=== PATIENT | female | born 1955 | race Caucasian/White ===

== ENCOUNTER → 2016-08-15 | Outpatient (CLI) | payer BC ==
--- NOTE | 2016-08-15 15:06 | US ---
EXAMINATION TYPE: US pelvic complete DATE OF EXAM: 08/15/2016 1:17 PM COMPARISON: Prior pelvic ultrasound June CLINICAL HISTORY: US. History of left ovarian cyst TECHNIQUE: Transabdominal (TA) Date of LMP: 10 years ago EXAM MEASUREMENTS: Uterus: 8.9 x 3.4 x 4.6cm Endometrial Stripe: 0.4cm Right Ovary: 2.2 x 2.0 x 1.1cm Left Ovary: 7.8 x 5.4 x 4.5cm FINDINGS: 1. Uterus: Anteverted heterogeneous in appearance, hypoechoic area anterior fundus = 1.5 x 1.2 x 1 .4cm probable fibroid 2. Endometrium: appears wnl 3. Right Ovary: appears wnl 4. Left Ovary: septated cystic area = 7.0 x 4.5 x 5.3cm 5. Bilateral Adnexa: wnl 6. Posterior cul-de-sac: wnl The cystic left ovarian mass shows internal septation and possibly wall irregularity, low-level inter nal debris similar to prior exam. Grayscale, color Doppler imaging performed, color flow noted to the left ovary IMPRESSION: Persistent cystic left adnexal mass, fibroid uterus. Consider ELECTROCARDIOGRAPH REPAIRER consult Normal Values: Uterine Length: < 10cm Endometrium: Proliferative (Day 6 ? 14): 4 ? 6mm Secret[place] (Day 15 ? 28): 7 ? 14mm Post Menopausal (and not symptomatic): up to 8mm Post Menopausal (with vaginal bleeding): upper limits <5mm Post Menopausal with HRT: upper limits 8 - 15mm Post Menopausal with tamoxifen: < 6mm (although 50% of those receiving tamoxifen have been reported t o have thickness >8mm)
== END | disposition home or self-care (01) ==
LOC: RADUSWWP 12:59
PROVIDERS: ATTEND Obstetrics & Gynecology
DX: N83.209 Unspecified ovarian cyst, unspecified side (principal); D25.9 Leiomyoma of uterus, unspecified
CPT/HCPCS: 76856

== ENCOUNTER → 2016-11-13 | Outpatient (CLI) | payer BC ==
[2016-11-13 12:33] LABS: Basophils % (A) 1 %; CH 29.8; CHCM 32.7; Eosinophils # (A) 0.1 k/uL (0-0.7); Eosinophils % (A) 3 %; HCT 40.1 % (34.0-46.0); HDW 2.29; HGB 13.1 gm/dL (11.4-16.0); Luc % (Auto) 4; Lymphocytes % (A) 37 %; MCHC 32.8 g/dL (31.0-37.0); MCV 91.4 fL (80.0-100.0); Mean Platelet Volume 6.8; Monocytes # (A) 0.3 k/uL (0-1.0); Monocytes % (A) 6 %; Neutrophils # (A) 2.7 k/uL (1.3-7.7); Neutrophils % (A) 50 %; RBC 4.39 m/uL (3.80-5.40); RDW 13.1 % (11.5-15.5); WBC 5.4 k/uL (3.8-10.6); WBC (Perox) 5.85
[2016-11-13 12:35] LABS: Appearance,Urine Clear (Clear); Bilirubin,Urine Negative (Negative); Glucose,Urine (UA) Negative (Negative); Ketones,Urine Negative (Negative); Leukocyte Esterase,Urine Trace (Negative); Mucus,Urine Rare /hpf; Nitrite,Urine Negative (Negative); PH, Urine 5.5 (5.0-8.0); Particle Count 392; Protein,Urine Negative (Negative); RBC,Urine <1 /hpf (0-5); Specific Gravity,Urine 1.008 (1.001-1.035); Squamous Epithelial Cell,Urine 2 /hpf (0-4); UA Billing (MACRO vs. MICRO) MICRO; Urobilinogen,Urine <2.0 mg/dL (<2.0); WBC,Urine 1 /hpf (0-5)
[2016-11-13 12:42] LABS: Partial Thromboplastin Time 23.7 sec (22.0-30.0); Prothrombin Time 10.6 sec (9.0-12.0)
[2016-11-13 13:09] LABS: Anion Gap 13 mmol/L; Blood Urea Nitrogen 14 mg/dL (7-17); Calcium 9.7 mg/dL (8.4-10.2); Carbon Dioxide 27 mmol/L (22-30); Chloride 102 mmol/L (98-107); Glucose 82 mg/dL (74-99); Non-African American GFR(MDRD) >60 (>60 ml/min/1.73 sqM); Potassium 4.8 mmol/L (3.5-5.1); Sodium 142 mmol/L (137-145)
== END ==
LOC: LABPAT 11:48
PROVIDERS: ATTEND Internal Medicine
DX: Z01.818 Encounter for other preprocedural examination (principal)
CPT/HCPCS: 36415; 80048; 81001; 85025; 85610; 85730

== ENCOUNTER 2016-11-27 08:21 | Inpatient (IN) | payer BC ==
[2016-11-20 13:19] VITALS: BMI 31.5
--- NOTE | 2016-11-26 19:01 | HP ---
DATE OF ADMISSION: Precious Parekh is a 61-year-old patient seen with symptomatic left hip osteoarthritis. After having options regarding treatment discussed, she elected to proceed with direct anterior left total hip arthroplasty. Consent was obtained. Medical clearance was provided by Dr. Ernesto Bahena. Past medical history is hypertension, hyperlipidemia, gastroesophageal reflux disease. Past surgical history is bilateral shoulder arthroscopy. Daily medications: 1. Celexa. 2. Crestor. 3. Lisinopril. 4. Nortriptyline. 5. Omeprazole. ALLERGIES: None reported. SOCIAL HISTORY: The patient currently smokes cigarettes. Physical evaluation of left hip: There is a diffuse tenderness about the hip girdle, limited range of motion with severe pain. There is diffuse weakness about the hip girdle, positive hip impingement sign. Left lower extremity is approximately 1 inch shorter than the right, straight leg raise negative. Distal neurovascular exam intact. Radiographs of the left hip reveal severe osteoarthritis. IMPRESSION: Left hip osteoarthritis. PLAN: Direct anterior left total hip arthroplasty.
[~2016-11-27 08:21] MED LIST: ACETAMINOPHEN TAB 500 MG TAB PO ONE; LIDOCAINE 1% 20 ML VIAL (10MG/ML) FOR IV START INTRADERMA PRN; MELOXICAM 7.5 MG TAB PO ONE; ONDANSETRON 4 MG/2 ML VIAL IVP ONE; SCOPOLAMINE 1.5MG/72HR PATCH TRANSDERM ONE; TRANEXAMIC ACID 1,000 MG in SODIUM CHLORIDE 0.9% 100 ML IVPB ONE; ceFAZolin 2 GM in SODIUM CHLORIDE 0.9% 100 ML IVPB ONE
[2016-11-27] MEDS: LACTATED RINGERS 1,000 ML IV SCH ×2 (08:46→14:34)
[2016-11-27] MEDS ORDERED: ceFAZolin 3,000 MG in SODIUM CHLORIDE 0.9% IRRIGATIO 3,000 ML IRRIGATION ONE (10:42)
[2016-11-27] MEDS ORDERED: MIDAZOLAM 2 MG/2 ML VIAL ONE (10:42)
[2016-11-27] MEDS ORDERED: SODIUM CHLORIDE 0.9% 100 ML BAG ONE (10:42)
[2016-11-27] MEDS ORDERED: PROPOFOL 10 MG/ML 20 ML VIAL IV ONE (10:42)
[2016-11-27] MEDS ORDERED: fentaNYL (PF) 50 MCG/ML 2 ML AMP ONE (10:42)
[2016-11-27] MEDS ORDERED: TRANEXAMIC ACID 1,000 MG/10 ML VIAL ONE (10:42)
[2016-11-27] MEDS ORDERED: LIDOCAINE 1% INJ 10MG/ML (20 ML MDV) ONE (10:42)
[2016-11-27] MEDS ORDERED: PHENYLEPHRINE-0.9% NACL SYG 1 MG/10 ML SYRINGE ONE (10:42)
[2016-11-27] MEDS: ROPIVACAINE 246.25 MG, EPINEPHrine 0.5 MG, KETOROLAC 30 MG, cloNIDine HCL/PF 80 MCG, WA... MISCELLANE ONE ×10 (11:12→12:37)
[2016-11-27] MEDS ORDERED: LACTATED RINGERS 1,000 ML IV ONE ×2 (11:30→13:59)
[2016-11-27] MEDS ORDERED: NALOXONE 0.4 MG/ML 1 ML VIAL IV PRN (13:05)
[2016-11-27] MEDS ORDERED: HYDROmorphone 1 MG/ML 1 ML SYRINGE IVP PRN ×3 (13:05)
[2016-11-27] MEDS ORDERED: ONDANSETRON 4 MG/2 ML VIAL IVP PRN (13:05)
[2016-11-27] MEDS ORDERED: HYDROcodone/APAP 7.5-325MG 1 EACH TAB PO PRN (13:05)
--- NOTE | 2016-11-27 13:05 | P.OP ---
Date of Procedure: 11/27/16 Preoperative Diagnosis: Left hip osteoarthritis Postoperative Diagnosis: Left hip osteoarthritis Procedure(s) Performed: Direct anterior left total hip arthroplasty Implants: 1. Felipe Corail cementless femoral stem KLA size 11 high offset with collar 2. Felipe pinnacle acetabular shell 54 mm 3. Holliday pinnacle polyethylene acetabular liner neutral 36 mm ID 54 mm OD 4. Holliday metal femoral head 36 mm -2 Anesthesia: local, spinal Surgeon: Feliciano Bhakta Fire Crew Specialist #1: Renny Snow Estimated Blood Loss (ml): 300 Pathology: other (Femoral head) Condition: stable Disposition: PACU Indications for Procedure: 61-year-old patient seen with symptomatic left hip osteoarthritis. After having treatment options discussed, she elected to proceed with left total hip arthroplasty. Operative Findings: See description of procedure Description of Procedure: The patient was taken to the operative suite. Patient underwent a spinal anesthetic by the department of anesthesia. Patient was then transferred to the [place] table. Patient was given preoperative IV antibiotics and TXA. Both lower extremities were placed in standard leg spars. The hip was then prepped and draped in the normal sterile orthopedic fashion. A standard anterior incision was made beginning 3 cm lateral and 1 cm distal to the ASIS extending 10 cm. Dissection was then carried down through the subcutaneous soft tissues down to the fascia overlying the tensor fascia rodo. An incision was now made through the fascia. Careful dissection was taken down exposing the tensor fascia rodo muscle. A Cobra retractor was now placed along the medial femoral neck and a second one along the lateral femoral neck. The venous circumflex vessels were now identified, cauterized and clipped. We identified the anterior hip capsule. An incision was made through the hip capsule along the lateral border. Tag sutures were then placed along the anterior capsule and lateral capsule. We then performed a capsulotomy. Retractors were now placed around the femoral neck itself. A Cobra retractor was now placed along the anterior acetabulum. Good exposure was now noted of the femoral head/neck complex. Residual labrum was debrided out. We placed the extremity into 3 turns of fine traction. We were then able to introduce a skid in between the femoral head and acetabulum. A placed a awl into the femoral head. We took 2 turns of traction off the extremity. Rotation was now released. The femoral head was then dislocated without difficulty. Additional releasing was performed of the capsule. The head was then reduced. All traction was released. A femoral neck cut was now made with a sagittal saw. It was completed with an osteotome at the lateral neck area. The femoral head was now removed without difficulty. There was advanced osteoarthritis of both the femoral head and acetabulum. The extremity was now rotated to 60 of external rotation. It was locked in position. Residual labrum was now debrided out. Serial reaming was performed of the acetabulum. Once we reached the appropriate size and a trial was position and fit nicely. The appropriate size was now chosen opened and made available. The wound was irrigated with pulse lavage mechanical irrigation. It was introduced into the acetabulum without difficulty. The C-arm/fluoroscopy was now brought into the operative field. We made sure we had a true AP pelvic view. We now under direct C-arm/ fluoroscopy introduced into the acetabular component with appropriate version and inclination. It was well seated and stable. The C-arm was pulled back. An appropriate liner was introduced and clicked into position. It was felt to be stable. At this point retractors were removed. The extremity was now placed into 125 external rotation with no traction. The leg was now dropped to the ground and adducted. Appropriate retractors were now positioned along the proximal femur. We also placed our femoral look into position. Additional capsular releasing was performed to gain access to the proximal femur. We now used a box osteotome. A canal finder was now utilized. Serial broaching was now performed until we reached the appropriate size with good overall rotational stability. We did have to use a reamer as a canal was tight for a size 11. After appropriate reaming was performed to size 11 fit nicely with good rotational stability present. Appropriate calcar planing was performed. A trial head/neck was placed into position. The hip was now reduced. The C-arm /fluoroscopy was brought back into the operative field. A spot film was obtained of the nonoperative hip. A spot film was obtained of the trial components. Overlays were performed, we noted good overall alignment and positioning for determining leg length. The C-arm/fluoroscopy was pulled back. Retractors were repositioned and the hip was dislocated. The leg was again taken down to the ground and adducted. Appropriate retractors were repositioned as well as the femoral hook. All trial components were removed. The wound was irrigated with pulse lavage mechanical irrigation. The femoral implant was opened along with the femoral head. The deep soft tissues were infiltrated local analgesia. The femoral implant was introduced with good purchase and fixation noted. The femoral head was introduced with good positioning and fixation noted. Retractors were now removed. The hip was now reduced. There appeared be good positioning of the hip. This was confirmed under fluoroscopy and spot films were obtained to document this. A second gram of TXA was given. Bipolar cautery had been utilized intermittently through the procedure for hemostasis. The wound was irrigated copiously with pulse lavage mechanical irrigation. The fascia was repaired with Vicryl suture. The subcutaneous soft tissues were repaired in layers with Vicryl suture. The skin was approximated with pernio/Dermabond. Sterile dressings were applied. Patient was then awakened, transferred to a bed and taken to recovery in stable condition. Graeme SIMONS assisted with the procedure.
[2016-11-27] MEDS: HYDROmorphone 1 MG/ML 1 ML SYRINGE IVP PRN ×4 (13:39→14:07)
--- NOTE | 2016-11-27 14:04 | FL ---
Fluoroscopy INDICATION: Pain FINDINGS: Fluoroscopy time: 38 seconds. Images obtained: 1. IMPRESSIONS: 1. Documentation of fluoroscopy.
[2016-11-27] MEDS: ceFAZolin 2 GM in SODIUM CHLORIDE 0.9% 100 ML IVPB SCH (15:40)
[2016-11-27] MEDS: MULTIVITAMINS, THERA 1 EACH TAB PO SCH (15:45)
[2016-11-27] MEDS: traMADol 50 MG TAB PO SCH ×2 (17:49→21:54)
[2016-11-27] MEDS: SENNOSIDES-DOCUSATE SODIUM 1 EACH TAB PO SCH (21:55)
[2016-11-27] MEDS: HYDROcodone/APAP 7.5-325MG 1 EACH TAB PO PRN (22:40)
[2016-11-28] MEDS: LACTATED RINGERS 1,000 ML IV SCH ×4 (00:23→20:38)
[2016-11-28] MEDS: ceFAZolin 2 GM in SODIUM CHLORIDE 0.9% 100 ML IVPB SCH (00:23)
[2016-11-28] MEDS: HYDROcodone/APAP 7.5-325MG 1 EACH TAB PO PRN ×4 (03:51→22:05)
[2016-11-28] MEDS: hydrOXYzine PAMOATE 25 MG CAP PO PRN ×2 (03:51→21:20)
[2016-11-28 08:32] LABS: Basophils % (A) 1 %; CH 30.1; CHCM 32.4; Eosinophils # (A) 0.1 k/uL (0-0.7); Eosinophils % (A) 2 %; HCT 30.4 % (34.0-46.0); HDW 2.25; Luc # (Auto) 0.11; Luc % (Auto) 2; Lymphocytes # (A) 1.4 k/uL (1.0-4.8); Lymphocytes % (A) 23 %; MCH 30.2 pg (25.0-35.0); MCHC 32.3 g/dL (31.0-37.0); MCV 93.4 fL (80.0-100.0); Mean Platelet Volume 7.2; Monocytes # (A) 0.3 k/uL (0-1.0); Monocytes % (A) 4 %; Neutrophils # (A) 4.2 k/uL (1.3-7.7); Neutrophils % (A) 68 %; RBC 3.26 m/uL (3.80-5.40); RDW 13.6 % (11.5-15.5); WBC 6.2 k/uL (3.8-10.6); WBC (Perox) 6.48
[2016-11-28] MEDS: FAMOTIDINE 20 MG TAB PO SCH (08:34)
[2016-11-28] MEDS: MELOXICAM 7.5 MG TAB PO SCH (08:34)
[2016-11-28] MEDS: ENOXAPARIN 40 MG/0.4 ML SYRINGE SQ SCH (08:34)
[2016-11-28 08:35] LABS: HGB 9.8 gm/dL (11.4-16.0)
[2016-11-28] MEDS: traMADol 50 MG TAB PO SCH ×4 (08:36→21:19)
--- NOTE | 2016-11-28 10:46 | P.PN ---
Subjective Principal diagnosis: Status post left total hip arthroplasty Patient is seen today resting in her hospital bed, she appears comfortable. Her pain is well-controlled. She is ambulating well at this point, denies headaches, lightheadedness, chest pain or shortness of breath. Objective - Vital Signs Vital signs: Vital Signs Temp 98.5 F 11/28/16 07:34 Pulse 99 11/28/16 07:34 Resp 15 11/28/16 07:34 BP 109/57 11/28/16 07:34 Pulse Ox 88 L 11/28/16 07:34 Intake & Output 11/27/16 11/28/16 11/28/16 18:59 06:59 18:59 Intake Total 2103 2100 Output Total 060 028 8788 Balance 1553 1250 -1300 Intake: IV 2103 1100 Lactated Ringers 1,000 ml 1100 @ 100 mls/hr IV .Q10H PABLITO Rx#:[id number] Oral 1000 Output: Urine 491 023 2293 Uretheral (Michel) 850 700 Estimated Blood Loss 300 Other: Voiding Method Indwelling Catheter Indwelling Catheter Indwelling Catheter # Voids 1 - Exam Left lower extremity: Incisions clean, dry and intact. Minimal soft tissue swelling present in the anterior thigh. Calf is soft, no tenderness with palpation. Plantar flexion, dorsiflexion, EHL, FHL are intact. Sensory exam light touch throughout the extremities intact, cap refill less than 3 seconds. - Labs CBC & Chem 7: 11/28/16 07:38 Labs: Abnormal Lab Results - Last 24 Hours (Table) 11/28/16 Range/Units 07:38 RBC 3.26 L (3.80-5.40) m/uL Hgb 9.8 L D (11.4-16.0) gm/dL Hct 30.4 L (34.0-46.0) % Assessment and Plan Plan: Assessment: 1. Postoperative day #1 status post left total hip arthroplasty Plan: 1. Pain control, continue supportive oral medication 2. Daily dressing changes/icing the hip region 3. Encourage incentive spirometer 4. Continue therapy 5. GI and DVT prophylaxis, continue Lovenox 6. Medical recommendations 7. Discharge planning: Patient will likely be discharged home tomorrow Time with Patient: Less than 30
--- NOTE | 2016-11-28 13:17 | P.DS ---
Providers Date of admission: 11/27/16 08:21 Expected date of discharge: 11/30/16 Attending physician: Feliciano Bhakta Consults: 11/27/16 13:05 Consult Physician Routine Consulting Provider: Carlos Warren Consult Reason/Comments: Medical management Do you want consulting provider notified?: Yes Primary care physician: [facility] Course: Date of admission: 11/27/2016 Date of discharge: 11/30/2016 Admission diagnosis: Status post left total hip arthroplasty Discharge diagnosis: Same Attending physician: Dr. Bhakta Surgical procedures: Left total hip arthroplasty Brief history: Patient is a 61-year-old female with a history of progressive primary left hip osteoarthritis. At this point patient has failed conservative treatment measures and has opted to proceed with a elective left total hip arthroplasty. Hospital course: Details of patient's surgery can be found in operative report. Patient tolerated the procedure well and was subsequently transported to orthopedic floor. Patient's orthopeidc and medical care was provided daily. Patient had daily laboratory tests performed for evaluation of overall blood counts . Patient had daily physical therapy to include strengthening range of motion as well as education with walker ambulation. Patient was treated with Lovenox for their postoperative DVT prophylaxis during their inpatient stay. Patient was noted to have a relatively uneventful postoperative course. Patient reported satisfactory pain control with oral pain medications by postoperative day 0. Patient showed satisfactory progress with physical therapy. Patient moved steadily through the program and had no difficulty meeting the goals by postoperative day 2 . Given patient's otherwise satisfactory course and having met physical therapy goals, plan is to discharge patient rehab on postoperative day 2 . Discharge condition/disposition: Patient will be discharged to rehab in stable condition. Discharge medications: Instructions are given on resumption of patient's normal daily medications per primary care recommendation, in addition patient will be prescribed [place] 7.5 mg/325 mg, tramadol 50 mg, aspirin 325 mg, Colace 100 mg, Pepcid 20 mg. Discharge instructions: 1. Wound care and infection precautions, keep incision dry and covered while showering, no lotions, creams, moisturizers. No soaking, tubs, pools, hottubs. Do not scrub over the incision. 2. Weight-bear as tolerated with walker / cane until follow-up. 3. Ice and elevate when necessary. Do not exceed 20 minutes per hour with ice pack. 4. Utilize compression sleeve until seen at first follow up appointment. 5. Visiting nursing care. 6. Home physical therapy. 7. Pain meds and anticoagulants per prescription. 8. Pain medication has potential to cause constipation. Increase oral fluid and fiber intake. Contact primary care provider if you have not had a bowel movement within 48 hours after discharge 9. No anti-inflammatory medication until discussed at first post operative visit, this including Motrin, Aleve, Mobic, Diclofenac, Aspirin. 10. Follow up in office at 2 weeks postop with Graeme Snow PA-C 11. Follow up with your primary care doctor 7-10 days after discharge. 12. Contact [facility] with any questions, . Procedures: Left total hip arthroplasty Patient Condition at Discharge: Good Plan - Discharge Summary New Discharge Prescriptions: Aspirin 325 mg PO BID #60 tab Docusate [Colace] 100 mg PO DAILY #30 capsule Famotidine [Pepcid] 20 mg PO DAILY #30 tablet HYDROcodone/APAP 7.5-325MG [[place] 7.5] 1 - 2 each PO Q6HR PRN #60 tab PRN Reason: Pain traMADol HCl [Ultram] 50 mg PO Q6H PRN #40 tab PRN Reason: Pain Discharge Medication List Cholecalciferol [Vitamin D3] 2,000 units PO DAILY 11/20/16 [History] Citalopram Hydrobromide [CeleXA] 20 mg PO DAILY 11/20/16 [History] Lisinopril [Zestril] 20 mg PO HS 11/20/16 [History] Nortriptyline [Pamelor] 30 mg PO HS 11/20/16 [History] Pantoprazole [Protonix] 40 mg PO DAILY 11/20/16 [History] Rosuvastatin Calcium [Crestor] 40 mg PO DAILY 11/20/16 [History] Aspirin 325 mg PO BID #60 tab 11/29/16 [Rx] Docusate [Colace] 100 mg PO DAILY #30 capsule 11/29/16 [Rx] HYDROcodone/APAP 7.5-325MG [[place] 7.5] 1 - 2 each PO Q6HR PRN #60 tab 11/29/16 [ Rx] traMADol HCl [Ultram] 50 mg PO Q6H PRN #40 tab 04/19/17 [Rx] Follow up Appointment(s)/Referral(s): Renny Snow, BHASKAR [PHYSICIAN DOUGH SC[employer]ER AND MIXER] - 12/15/16 1:50 pm Activity/Diet/Wound Care/Special Instructions: [facility] - Orthopedic Discharge Instructions: 1. Wound care and infection precautions, keep incision dry and covered while showering, no lotions, creams, moisturizers. No soaking, pools, hot tubs. Do not scrub over incision. 2. Weight-bear as tolerated with walker / cane until follow-up. 3. Ice and elevate when necessary. Do not exceed 20 minutes per hour with ice pack. 4. Utilize compression sleeve until seen at first follow up appointment. 5. Visiting nursing care. 6. Home physical therapy. 7. Pain meds and anticoagulants per prescription. 8. Pain medication has potential to cause constipation. Increase oral fluid and fiber intake. Contact primary care provider if you have not had a bowel movement within 48 hours after discharge. 9. No anti-inflammatory medication until discussed at first post operative visit, this including Motrin, Aleve, Mobic, Diclofenac. 10. Follow up in office at 2 weeks postop with Graeme Snow PA-C 11. Follow up with your primary care doctor 7-10 days after discharge. 12. Contact [facility] with any questions, . Discharge Disposition: TRANSFER TO SNF/ECF
--- NOTE | 2016-11-28 16:19 | XR ---
EXAMINATION TYPE: XR chest 1V DATE OF EXAM: 11/28/2016 3:57 PM HISTORY: Shortness of breath. COMPARISON: None. TECHNIQUE: Single view of the chest is submitted. FINDINGS: Demonstrated are scattered senescent parenchymal change. There is no evidence for focal infiltrate. The heart is stable. Hilar and mediastinal structures are within normal limits. Degenerative changes are seen of the dorsal spine. IMPRESSION: 1. Chronic changes without evidence for acute pulmonary disease.
[2016-11-28] MEDS: ZOLPIDEM 5 MG TAB PO SCH (21:19)
[2016-11-28] MEDS: SENNOSIDES-DOCUSATE SODIUM 1 EACH TAB PO SCH (22:06)
[2016-11-29] MEDS: hydrOXYzine PAMOATE 25 MG CAP PO PRN (02:47)
[2016-11-29] MEDS: LACTATED RINGERS 1,000 ML IV SCH ×2 (04:12→19:54)
[2016-11-29] MEDS: HYDROcodone/APAP 7.5-325MG 1 EACH TAB PO PRN ×4 (04:13→21:09)
--- NOTE | 2016-11-29 08:51 | CONS ---
DATE OF CONSULTATION: 11/28/2016 REASON FOR CONSULTATION: Medical management requested by Dr. Bhakta. CONSULTATION: This is a very pleasant 61-year-old patient I saw earlier on 11/28/16. Patient has undergone a left total hip arthroplasty. Significant pain is present operative site. No nausea or vomiting. No chest pain. Did tolerate some breakfast. Patient's chronic stable medical conditions include GERD, hyperlipidemia, hypertension, osteoarthritis, sleep apnea, fatty liver. REVIEW OF SYSTEMS: CONSTITUTIONAL: None. HEENT: None. RESPIRATORY: None. CARDIOVASCULAR: None. GASTROINTESTINAL: None. GENITOURINARY: None. MUSCULOSKELETAL: Pain in the joints. DERMATOLOGICAL: None. HEMATOLOGIC: None. LYMPHATICS: None. PSYCHIATRY: None. NEUROLOGICAL: None. Past history of GERD, hyperlipidemia, hypertension, osteoarthritis, sleep apnea, fatty liver. PAST SURGICAL HISTORY: Bilateral shoulder surgery, bilateral ovaries and tubes removed. Past psych history of anxiety. SOCIAL HISTORY: Patient smoked a pack and a half a day for 40 years; stopped in August of this year. . FAMILY HISTORY: Cancer type unknown. HOME MEDICATIONS: 1. Crestor 40 mg a day. 2. Protonix 40 mg a day. 3. Pamelor 30 mg p.o. q.h.s. 4. Zestril 20 mg p.o. q.h.s. 5. Celexa 20 mg p.o. daily. 6. Vitamin D3, 2000 units p.o. daily. ALLERGIES: None. On examination, temperature 98.5, pulse 99, respirations 15, blood pressure 109/57, pulse ox 98% on 2 L. GENERAL APPEARANCE: Sitting up, well built, BMI of 31.5, comfortable. EYES: Pupils equal. Conjunctivae normal. HENT: Oral cavity normal. NECK: JVD not raised. Mass not palpable. RESPIRATORY: Effort normal. LUNGS: Slightly decreased breath sounds. CARDIOVASCULAR: First and second sounds normal. No edema. ABDOMEN: Soft, nontender. Liver and spleen not palpable. LYMPHATIC: No lymph node palpable in the neck or axillae. PSYCHIATRY: Alert and oriented x3. Mood and affect normal. NEUROLOGICAL: Pupils equal. Cranial nerves grossly intact. Dressing over the left hip. INVESTIGATIONS: White count 6.2, hemoglobin 9.8. Hemoglobin was 13.1 on 11/13/16. ASSESSMENT: 1. Left total hip arthroplasty. 2. Acute blood loss anemia expected from surgery. 3. Gastroesophageal reflux disease. 4. Hyperlipidemia. 5. Essential hypertension. 6. Primary osteoarthritis. 7. Obstructive sleep apnea. Patient is awaiting to get a CPAP machine. 8. Fatty liver. 9. Obesity, body mass index 31.5. PLAN: Patient's home medications will be resumed. Care was discussed with the patient. Pain control in place as per Orthopedics. The patient is on DVT prophylaxis in the form of Lovenox. Thank you Dr. Bhakta.
[2016-11-29] MEDS: MELOXICAM 7.5 MG TAB PO SCH (09:05)
[2016-11-29] MEDS: traMADol 50 MG TAB PO SCH ×4 (09:05→23:32)
[2016-11-29] MEDS: ENOXAPARIN 40 MG/0.4 ML SYRINGE SQ SCH (09:05)
[2016-11-29] MEDS: FAMOTIDINE 20 MG TAB PO SCH (09:05)
[2016-11-29] MEDS: MULTIVITAMINS, THERA 1 EACH TAB PO SCH (09:06)
--- NOTE | 2016-11-29 12:29 | PN ---
DATE OF SERVICE: 11/29/2016 PRESENTING COMPLAINT: Left total hip arthroplasty. INTERVAL HISTORY: Patient is status post left total hip arthroplasty. Some pain at the operative site. No chest pain, shortness of breath, nausea or vomiting. Did work with physical therapy. Did tolerate her breakfast. Review of systems done for constitutional, cardiovascular, GI, pulmonary; relevant findings as above. Current medications are reviewed. On examination, temperature 98, pulse 86, respiration 17, blood pressure 104/76, pulse ox 96% on room air. GENERAL APPEARANCE: Sitting up, comfortable. EYES: Pupils equal. Conjunctivae normal. NECK: JVD not raised. Mass not palpable. Respiratory effort normal. LUNGS: Slightly decreased breath sounds. CARDIOVASCULAR: First and second sounds normal. No edema. ABDOMEN: Soft, nontender. Liver and spleen not palpable. PSYCHIATRY: Alert and oriented x3. Mood and affect is normal. EXTREMITIES: No edema. INVESTIGATIONS: No blood work from today. ASSESSMENT: 1. Left total hip arthroplasty. 2. Acute blood loss anemia as expected from surgery. 3. Gastroesophageal reflux disease. 4. Hyperlipidemia. 5. Essential hypertension. 6. Primary osteoarthritis. 7. Obstructive sleep apnea. Patient is waiting to get a CPAP machine. 8. Fatty liver. 9. Obesity; body mass index of 31.5. PLAN: Care was discussed with the patient, stable. After discharge, she should follow up with the family doctor. Thank you, Dr. Bhakta.
--- NOTE | 2016-11-29 12:38 | P.PN ---
Subjective Principal diagnosis: Status post left total hip arthroplasty Patient is seen today resting in her hospital bed, she appears comfortable. Her pain is well-controlled. She is ambulating well at this point, denies headaches, lightheadedness, chest pain or shortness of breath. Objective - Vital Signs Vital signs: Vital Signs Temp 98.0 F 11/29/16 07:45 Pulse 86 11/29/16 07:45 Resp 17 11/29/16 07:45 BP 114/76 11/29/16 07:45 Pulse Ox 96 11/29/16 07:45 Intake & Output 11/28/16 11/29/16 11/29/16 18:59 06:59 18:59 Intake Total 1130 480 Output Total 1300 Balance -1300 1130 480 Intake: Oral 1130 480 Output: Urine 1300 Uretheral (Michel) 700 Other: Voiding Method Indwelling Catheter Toilet Toilet # Voids 2 2 1 - Exam Left lower extremity: Incisions clean, dry and intact. Minimal soft tissue swelling present in the anterior thigh. Calf is soft, no tenderness with palpation. Plantar flexion, dorsiflexion, EHL, FHL are intact. Sensory exam light touch throughout the extremities intact, cap refill less than 3 seconds. - Labs CBC & Chem 7: 11/28/16 07:38 Assessment and Plan Plan: Assessment: 1. Postoperative day #2 status post left total hip arthroplasty Plan: 1. Pain control, continue supportive oral medication 2. Daily dressing changes/icing the hip region 3. Encourage incentive spirometer 4. Continue therapy 5. GI and DVT prophylaxis, continue Lovenox 6. Medical recommendations 7. Discharge planning: Patient may be discharged to rehab today Time with Patient: Less than 30
[2016-11-29] MEDS: SENNOSIDES-DOCUSATE SODIUM 1 EACH TAB PO SCH (21:09)
[2016-11-29] MEDS: ZOLPIDEM 5 MG TAB PO SCH (21:10)
[2016-11-30] MEDS: LACTATED RINGERS 1,000 ML IV SCH (01:25)
[2016-11-30] MEDS: HYDROcodone/APAP 7.5-325MG 1 EACH TAB PO PRN (05:20)
[2016-11-30 07:34] LABS: Basophils % (A) 0 %; CH 30.3; CHCM 32.9; Eosinophils # (A) 0.3 k/uL (0-0.7); Eosinophils % (A) 4 %; HCT 26.9 % (34.0-46.0); HDW 2.42; HGB 8.7 gm/dL (11.4-16.0); Luc # (Auto) 0.18; Luc % (Auto) 3; Lymphocytes # (A) 1.7 k/uL (1.0-4.8); Lymphocytes % (A) 24 %; MCH 30.1 pg (25.0-35.0); MCHC 32.6 g/dL (31.0-37.0); MCV 92.4 fL (80.0-100.0); Mean Platelet Volume 7.5; Monocytes # (A) 0.4 k/uL (0-1.0); Monocytes % (A) 5 %; Neutrophils # (A) 4.4 k/uL (1.3-7.7); Neutrophils % (A) 64 %; RBC 2.91 m/uL (3.80-5.40); RDW 13.8 % (11.5-15.5); WBC 6.9 k/uL (3.8-10.6); WBC (Perox) 6.86
[2016-11-30 08:11] VITALS: BP 119/72; PULSE 88; RESP 17; TEMP 98.1
[2016-11-30] MEDS: traMADol 50 MG TAB PO SCH ×2 (08:43→14:36)
[2016-11-30] MEDS: ENOXAPARIN 40 MG/0.4 ML SYRINGE SQ SCH (08:44)
[2016-11-30] MEDS: FAMOTIDINE 20 MG TAB PO SCH (08:45)
[2016-11-30] MEDS: MELOXICAM 7.5 MG TAB PO SCH (08:45)
--- NOTE | 2016-11-30 09:00 | P.PN ---
Subjective Principal diagnosis: Status post left total hip arthroplasty Patient is seen today resting in her hospital bed, she appears comfortable. Her pain is well-controlled. She is ambulating well at this point, denies headaches, lightheadedness, chest pain or shortness of breath. Objective - Vital Signs Vital signs: Vital Signs Temp 98.1 F 11/30/16 08:10 Pulse 88 11/30/16 08:10 Resp 17 11/30/16 08:10 BP 119/72 11/30/16 08:10 Pulse Ox 96 11/30/16 08:10 Intake & Output 11/29/16 11/30/16 11/30/16 18:59 06:59 18:59 Intake Total 960 1130 Output Total 600 Balance 960 530 Weight 80.739 kg Intake: Oral 960 1130 Output: Urine 600 Other: Voiding Method Toilet Toilet # Voids 1 2 - Exam Left lower extremity: Incisions clean, dry and intact. Minimal soft tissue swelling present in the anterior thigh. Calf is soft, no tenderness with palpation. Plantar flexion, dorsiflexion, EHL, FHL are intact. Sensory exam light touch throughout the extremities intact, cap refill less than 3 seconds. - Labs CBC & Chem 7: 11/30/16 06:29 Labs: Abnormal Lab Results - Last 24 Hours (Table) 11/30/16 Range/Units 06:29 RBC 2.91 L (3.80-5.40) m/uL Hgb 8.7 L (11.4-16.0) gm/dL Hct 26.9 L (34.0-46.0) % Assessment and Plan Plan: Assessment: 1. Postoperative day #3 status post left total hip arthroplasty Plan: 1. Pain control, will dc on oral medications 2. Daily dressing changes/icing the hip region 3. Encourage incentive spirometer 4. Continue therapy 5. GI and DVT prophylaxis, will be dc on aspirin 325mg bid 6. Medical recommendations 7. Discharge planning: Patient may be discharged to rehab today Time with Patient: Less than 30
[2016-11-30] MEDS ORDERED: CITALOPRAM HYDROBROMIDE 20 MG TAB PO SCH (09:30)
[2016-11-30] MEDS ORDERED: ATORVASTATIN 80 MG TAB PO SCH (09:30)
[2016-11-30] MEDS ORDERED: CHOLECALCIFEROL 1,000 UNIT TAB PO SCH (09:30)
[2016-11-30] MEDS ORDERED: PANTOPRAZOLE 40 MG TABLET PO SCH (09:30)
[2016-11-30] MEDS ORDERED: LISINOPRIL 20 MG TAB PO SCH (21:00)
[2016-11-30] MEDS ORDERED: NORTRIPTYLINE 10 MG CAP PO SCH (21:00)
== END 2016-11-30 14:45 | DRG 470 ==
LOC: 2ORMAIN 08:21 → 3SUR 12:55
PROVIDERS: ADMIT Internal Medicine; ATTEND Orthopaedic Surgery
PROC: 0SRB02A Replacement of Left Hip Joint with Metal on Polyethylene Synthetic Substitute, Uncemented, Open Approach (ICD-10-PCS; principal; 2016-11-27 10:10)
DX: M16.12 Unilateral primary osteoarthritis, left hip (principal); K76.0 Fatty (change of) liver, not elsewhere classified; E66.9 Obesity, unspecified; D62 Acute posthemorrhagic anemia; I10 Essential (primary) hypertension; E78.5 Hyperlipidemia, unspecified; F17.210 Nicotine dependence, cigarettes, uncomplicated; G47.33 Obstructive sleep apnea (adult) (pediatric); K21.9 Gastro-esophageal reflux disease without esophagitis; Z68.31 Body mass index [BMI] 31.0-31.9, adult; Z79.899 Other long term (current) drug therapy
CPT/HCPCS: 71010; 73501; 85025; 86850; 86900; 86901; 88300; 94760

== ENCOUNTER 2016-12-02 19:39 | Emergency (ER) | payer BC ==
--- NOTE | 2016-12-02 20:17 | ED ---
General Adult HPI - General Source: patient, family, RN notes reviewed Mode of arrival: wheelchair Limitations: no limitations <Zhao العلي - Last Filed: 12/02/16 20:16> <Bart Beck - Last Filed: 12/02/16 22:05> - General Chief complaint: Extremity Problem,Nontraumatic Stated complaint: post op concerns Time Seen by Provider: 12/02/16 20:09 - History of Present Illness Initial comments: Patient is a pleasant [age]-year-old female presenting to the emergency Department with left leg swelling. Patient did have left hip replacement done 5 days ago. Patient has had progressive swelling in the left leg since that time. Patient states there is some discomfort. Patient denies specific calf tenderness. No chest pain or dyspnea. No history of similar symptoms previously. Patient does take aspirin. (Zhao العلي) - Related Data Home Medications Medication Instructions Recorded Confirmed Cholecalciferol [Vitamin D3] 2,000 units PO DAILY 11/20/16 12/02/16 Citalopram Hydrobromide [CeleXA] 20 mg PO DAILY 11/20/16 12/02/16 Lisinopril [Zestril] 20 mg PO HS 11/20/16 12/02/16 Nortriptyline [Pamelor] 30 mg PO HS 11/20/16 12/02/16 HYDROcodone/APAP 7.5-325MG [[place] 1 tab PO Q6HR PRN 12/02/16 12/02/16 7.5-325] Magnesium Oxide [Mag-Ox] 400 mg PO HS 12/02/16 12/02/16 traMADol HCl [Ultram] 50 mg PO Q6H PRN 12/02/16 12/02/16 Previous Rx's Medication Instructions Recorded Aspirin 325 mg PO BID #60 tab 11/29/16 Docusate [Colace] 100 mg PO DAILY #30 capsule 11/29/16 Allergies Allergy/AdvReac Type Severity Reaction Status Date / Time No Known Allergies Allergy Verified 12/02/16 20:08 Review of Systems ROS Other: All systems not noted in ROS Statement are negative. Constitutional: Denies: fever Eyes: Denies: eye pain ENT: Denies: ear pain Respiratory: Denies: cough, dyspnea Cardiovascular: Denies: chest pain Endocrine: Denies: fatigue Gastrointestinal: Denies: abdominal pain Genitourinary: Denies: dysuria Musculoskeletal: Denies: back pain Skin: Denies: rash Neurological: Denies: weakness <Zhao العلي - Last Filed: 12/02/16 20:16> ROS Other: All systems not noted in ROS Statement are negative. <Bart Beck - Last Filed: 12/02/16 22:05> ROS Statement: Those systems with pertinent positive or pertinent negative responses have been documented in the HPI. Past Medical History Past Medical History: GERD/Reflux, Hyperlipidemia, Hypertension, Liver Disease, Osteoarthritis (OA), Sleep Apnea/CPAP/BIPAP Additional Past Medical History / Comment(s): BS INCREASING, NO DIAGNOSIS OR TX YET. FATTY LIVER. LT HIP OA. POS SLEEP APNEA, NO TX YET. MIGRAINES. VARICOSE VEINS. History of Any Multi-Drug Resistant Organisms: None Reported Past Surgical History: Orthopedic Surgery Additional Past Surgical History / Comment(s): MONIQUE SHOULDER SURG. MONIQUE OVARIES, TUBES REMOVED. Past Anesthesia/Blood Transfusion Reactions: No Reported Reaction Past Psychological History: Anxiety Smoking Status: Current some day smoker Past Alcohol Use History: None Reported Additional Past Alcohol Use History / Comment(s): SMOKED 40 YEARS, 1/2-1 PPD, QUIT 08/2016. Past Drug Use History: None Reported - Past Family History Father Brother(s) Family Medical History: Cancer Mother Family Medical History: Cancer <Zhao العلي - Last Filed: 12/02/16 20:16> General Exam Limitations: no limitations General appearance: alert, in no apparent distress Head exam: Present: atraumatic Eye exam: Present: normal appearance, PERRL ENT exam: Present: normal oropharynx Neck exam: Present: normal inspection Respiratory exam: Present: normal lung sounds bilaterally Cardiovascular Exam: Present: regular rate, normal rhythm Expanded Peripheral pulses: 2+: Dorsalis Pedis (R), Dorsalis Pedis (L) GI/Abdominal exam: Present: soft. Absent: tenderness Extremities exam: Present: pedal edema (+2 on the left, trace in the right). Absent: calf tenderness Neurological exam: Present: alert Psychiatric exam: Present: normal affect, normal mood Skin exam: Present: normal color. Absent: rash <Zhao العلي - Last Filed: 12/02/16 20:16> Medical Decision Making <Zhao العلي - Last Filed: 12/02/16 20:16> <Bart Beck - Last Filed: 12/02/16 22:05> - Medical Decision Making Ultrasound showed no DVT. (Bart Beck) Disposition <Zhao العلي - Last Filed: 12/02/16 20:16> Time of Disposition: 22:05 <Bart Beck - Last Filed: 12/02/16 22:05> Clinical Impression: Postoperative edema Disposition: HOME SELF-CARE Condition: Good Instructions: Leg Edema (ED) Referrals: Ernesto Bahena MD [Primary Care Provider] - 1-2 days
--- NOTE | 2016-12-02 21:33 | US ---
EXAMINATION TYPE: US venous doppler duplex LE LT DATE OF EXAM: 12/02/2016 8:16 PM COMPARISON: NONE CLINICAL HISTORY: Pain, swelling, post op hip replacement 5 days. SIDE PERFORMED: Left TECHNIQUE: The lower extremity deep venous system is examined utilizing real time linear array sonog jorge luis with graded compression, doppler sonography and color-flow sonography. VESSELS IMAGED: External Iliac Vein (EIV) Common Femoral Vein Deep Femoral Vein Greater Saphenous Vein * Femoral Vein Popliteal Vein Small Saphenous Vein * Proximal Calf Veins (* superficial vessels) Left Leg: Appears negative for DVT. IMPRESSION: 1. Left lower extremity negative for deep venous thrombosis by ultrasound.
[2016-12-02] MEDS ORDERED: HYDROcodone/APAP 7.5-325MG 1 EACH TAB PO ONE (22:04)
[2016-12-02 22:15] VITALS: BP 155/67; PULSE 84; RESP 18; TEMP 97.6
== END 2016-12-02 22:36 | disposition home or self-care (01) ==
LOC: EC 19:39
DX: R60.0 Localized edema (principal); I10 Essential (primary) hypertension; M19.90 Unspecified osteoarthritis, unspecified site; F41.9 Anxiety disorder, unspecified; F17.200 Nicotine dependence, unspecified, uncomplicated; Z79.899 Other long term (current) drug therapy; Z96.642 Presence of left artificial hip joint
CPT/HCPCS: 99283

== ENCOUNTER → 2018-02-08 | Outpatient (CLI) | payer BC ==
--- NOTE | 2018-02-08 12:27 | ECHOF ---
Referral Reason:M34.9 Systemic sclerosis, unspecified MEASUREMENTS -------- HEIGHT: 162.6 cm WEIGHT: 78.0 kg BP: IVSd: 1.2 cm (0.6 - 1.1) LVIDd: 3.9 cm (3.9 - 5.3) LVPWd: 1.3 cm (0.6 - 1.1) IVSs: 1.6 cm LVIDs: 2.5 cm LVPWs: 1.9 cm LAESV Index (A-L): 16.43 ml/m Ao Diam: 3.0 cm (2.0 - 3.7) AV Cusp: 1.7 cm (1.5 - 2.6) LA Diam: 3.4 cm (2.7 - 3.8) MV EXCURSION: 19.436 mm (> 18.000) MV EF SLOPE: 74 mm/s (70 - 150) EPSS: 0.6 cm MV E Clinton: 0.63 m/s MV DecT: 280 ms MV A Clinton: 0.84 m/s MV E/A Ratio: 0.76 RAP: 5.00 mmHg RVSP: 11.51 mmHg FINDINGS -------- Sinus rhythm. This was a technically good study. The left ventricular size is normal. There is mild concentric left ventricular hypertrophy. Overa ll left ventricular systolic function is normal with, an EF between 55 - 60 %. The right ventricle is normal in size and function. The left atrium is normal in size. The right atrium is normal in size. The aortic valve is trileaflet, and appears structurally normal. No aortic stenosis or regurgitation. There is trace mitral regurgitation. Trace tricuspid regurgitation present. The right ventricular systolic pressure, as measured by Dopp ler, is 11.51mmHg. Pulmonic valve appears structurally normal. The pericardium is normal. CONCLUSIONS -------- 1. Sinus rhythm. 2. This was a technically good study. 3. The left ventricular size is normal. 4. There is mild concentric left ventricular hypertrophy. 5. Overall left ventricular systolic function is normal with, an EF between 55 - 60 %. 6. The right ventricle is normal in size and function. 7. The left atrium is normal in size. 8. The right atrium is normal in size. 9. The aortic valve is trileaflet, and appears structurally normal. No aortic stenosis or regurgitati on. 10. There is trace mitral regurgitation. 11. Trace tricuspid regurgitation present. 12. The right ventricular systolic pressure, as measured by Doppler, is 11.51mmHg. 13. Pulmonic valve appears structurally normal. 14. The pericardium is normal. [employer] COMMERCIAL SALESPERSON: Mabel Menon RDCS
== END | disposition home or self-care (01) ==
LOC: RADECHMAIN 11:27
PROVIDERS: ATTEND Internal Medicine Rheumatology
DX: I51.7 Cardiomegaly (principal)
CPT/HCPCS: 93306

== ENCOUNTER → 2018-02-19 | Outpatient (CLI) | payer BC | END | disposition home or self-care (01) | LOC: CPPFTMAIN 13:28 | PROVIDERS: ATTEND Internal Medicine Rheumatology | DX: M34.9 Systemic sclerosis, unspecified (principal) | CPT/HCPCS: 94060; 94726; 94729 ==

== ENCOUNTER 2018-04-02 10:06 | Day surgery (SDC) | payer BC ==
[2018-03-28 15:01] VITALS: BMI 29.3
[~2018-04-02 10:06] MED LIST changes: -ACETAMINOPHEN TAB 500 MG TAB PO ONE; +LACTATED RINGERS 1,000 ML IV SCH; -MELOXICAM 7.5 MG TAB PO ONE; +MIDAZOLAM 2 MG/2 ML VIAL IV PRN; -ONDANSETRON 4 MG/2 ML VIAL IVP ONE; -SCOPOLAMINE 1.5MG/72HR PATCH TRANSDERM ONE; -TRANEXAMIC ACID 1,000 MG in SODIUM CHLORIDE 0.9% 100 ML IVPB ONE; -ceFAZolin 2 GM in SODIUM CHLORIDE 0.9% 100 ML IVPB ONE
[2018-04-02 10:24] VITALS: TEMP 98.7
[2018-04-02] MEDS ORDERED: GLYCOPYRROLATE 0.2 MG/ML 2 ML VIAL ONE (11:17)
[2018-04-02] MEDS ORDERED: PROPOFOL 10 MG/ML 20 ML VIAL IV ONE (11:17)
[2018-04-02] MEDS ORDERED: LIDOCAINE 1% INJ 10MG/ML (20 ML MDV) ONE (11:17)
--- NOTE | 2018-04-02 11:50 | P.PCN ---
Date of Procedure: 04/02/18 Procedure(s) Performed: Procedure: Esophagogastroduodenoscopy and biopsy. Preoperative diagnosis: Chronic reflux symptoms with nocturnal breakthrough symptoms despite therapy. Postoperative diagnosis: 1. Small sliding hiatal hernia with no obvious esophagitis or complicated reflux disease. 2. Mild antral gastritis. 3. Multiple biopsies obtained from the duodenum, antrum and esophagus. Preparation and sedation: Were provided by anesthesia. Brief clinical history: The patient is a 62-year-old female who is scheduled for this evaluation because of chronic reflux symptoms requiring therapy with nocturnal breakthrough symptoms despite therapy. She denies dysphagia or other alarm symptoms or anemia. She may have had upper endoscopy in the past but this would have been at the onset of her symptoms more than 20 years ago. Procedure: With the patient on her left lateral decubitus position and after informed consent and adequate sedation, I passed the Olympus-GIF 160 video upper endoscope through the cricopharyngeus down the esophagus. GE junction was around 34 cm from the incisors and there was a small sliding hiatal hernia but there were no obvious esophagitis or complicated reflux disease. The endoscope was then passed into the stomach which was insufflated with air and inspected in detail including the retroflex view in the cardia. There was some mottling and erythema in the antrum but no ulcers or erosions. Pyloric channel , duodenal bulb, post bulbar area and descending duodenum appeared within normal limits. Because of her symptoms, I obtained biopsies from the duodenum, antrum and esophagus then the endoscope was withdrawn. The patient tolerated the procedure well. Plan: The patient was reassured. Will await biopsy results. She will follow- up with you as planned and I would like to see her in follow-up in the coming few weeks to discuss the findings and the biopsy results and see how we can optimize her medical therapy in the short-term and see if we can avoid significant acid suppression without exacerbating her symptoms in the long- term. I will keep you updated on her progress.
[2018-04-02 12:05] VITALS: PULSE 60; RESP 16
[2018-04-02 12:06] VITALS: BP 147/61
[2018-04-02 12:17] LABS: Glucose,Whole Blood 77 mg/dL (75-99)
== END 2018-04-02 12:20 | disposition home or self-care (01) ==
LOC: ORWHC2ENDO 10:06
DX: K21.0 Gastro-esophageal reflux disease with esophagitis (principal); K29.50 Unspecified chronic gastritis without bleeding; K44.9 Diaphragmatic hernia without obstruction or gangrene; I10 Essential (primary) hypertension; E78.5 Hyperlipidemia, unspecified; G47.33 Obstructive sleep apnea (adult) (pediatric); F41.9 Anxiety disorder, unspecified; M19.90 Unspecified osteoarthritis, unspecified site; F17.210 Nicotine dependence, cigarettes, uncomplicated; Z79.52 Long term (current) use of systemic steroids; Z79.899 Other long term (current) drug therapy; Z96.642 Presence of left artificial hip joint
CPT/HCPCS: 43239; 88305; J2001; J2704

== ENCOUNTER 2018-11-05 08:12 | Day surgery (SDC) | payer BC ==
[2018-10-31 11:35] VITALS: BMI 29.5
[~2018-11-05 08:12] MED LIST changes: -LIDOCAINE 1% 20 ML VIAL (10MG/ML) FOR IV START INTRADERMA PRN; -MIDAZOLAM 2 MG/2 ML VIAL IV PRN
[2018-11-05 08:36] VITALS: TEMP 97.9
[2018-11-05] MEDS ORDERED: fentaNYL (PF) 50 MCG/ML 2 ML AMP ONE (09:28)
[2018-11-05] MEDS ORDERED: PROPOFOL 10 MG/ML 20 ML VIAL IV ONE (09:28)
[2018-11-05] MEDS ORDERED: LIDOCAINE 1% INJ 10MG/ML (20 ML MDV) ONE (09:28)
[2018-11-05 09:58] VITALS: RESP 16
--- NOTE | 2018-11-05 10:05 | P.PCN ---
Date of Procedure: 11/05/18 Procedure(s) Performed: Procedure: Esophagogastroduodenoscopy and biopsy. Preoperative diagnosis: Gastroesophageal reflux symptoms and abnormal imaging of the stomach. Postoperative diagnosis: 1. Small sliding hiatal hernia with no obvious esophagitis or complaints reflux disease. 2. Mild antral gastritis. 3. No abnormality in the fundus of the stomach to correspond to the abnormality noted on CT. Preparation and sedation: Was provided by anesthesia. Brief clinical history: The patient is a 63-year-old female with history of chronic reflux and history of scleroderma with ongoing symptoms despite therapy, was noted to have abnormality in the stomach when she had an imaging study of her back. That showed possible fullness in the posterior fundus, and upper endoscopy was recommended. Procedure: With the patient on her left lateral decubitus position and after informed consent and adequate sedation, I passed a [employer]-GIF weight 190 video upper endoscope through the cricopharyngeus down the esophagus. GE junction was around 35 cm from the incisors and there was a small sliding hiatal hernia but no obvious esophagitis or complicated reflux disease. The endoscope was then passed into the stomach which was insufflated with air and inspected in detail including the retroflex view in the cardia. Particular attention was made in the posterior fundus and no abnormalities were seen once the stomach was distended with air. There was some mottling and erythema in the antrum but no ulcers or erosions. Pyloric channel, duodenal bulb, post bulbar area and descending duodenum appeared within normal limits. I obtained biopsies from the antrum and esophagus then the endoscope was withdrawn. The patient tolerated the procedure well. Plan: The patient was reassured. Will continue antireflux diet and measures and acid suppressive therapy. Further plans based on her course. If she remains symptomatic and the biopsies do not show evidence of acid reflux, I might consider a 24-hour pH/impedance study. I will keep you updated on her progress.
[2018-11-05 10:12] VITALS: BP 114/66; PULSE 71
== END 2018-11-05 10:35 | disposition home or self-care (01) ==
LOC: ORWHC2ENDO 08:12
DX: K44.9 Diaphragmatic hernia without obstruction or gangrene (principal); K29.50 Unspecified chronic gastritis without bleeding; K21.0 Gastro-esophageal reflux disease with esophagitis; I10 Essential (primary) hypertension; E78.5 Hyperlipidemia, unspecified; M19.90 Unspecified osteoarthritis, unspecified site; G47.33 Obstructive sleep apnea (adult) (pediatric); Z99.89 Dependence on other enabling machines and devices; K76.0 Fatty (change of) liver, not elsewhere classified; M34.9 Systemic sclerosis, unspecified; F17.210 Nicotine dependence, cigarettes, uncomplicated; Z79.899 Other long term (current) drug therapy; Z91.09 Other allergy status, other than to drugs and biological substances
CPT/HCPCS: 88305; 43239; J2001; J3010; J2704

== ENCOUNTER → 2019-01-29 | Outpatient (CLI) | payer BC | END | disposition home or self-care (01) | LOC: CPPFTMAIN 10:49 | PROVIDERS: ATTEND Internal Medicine Rheumatology | DX: M34.9 Systemic sclerosis, unspecified (principal) | CPT/HCPCS: 94060; 94726; 94729 ==

== ENCOUNTER → 2019-02-11 | Outpatient (CLI) | payer BC ==
--- NOTE | 2019-02-12 12:05 | ECHOF ---
Referral Reason:M34.9 Systemic sclerosis, unspecified, MEASUREMENTS -------- HEIGHT: 162.6 cm WEIGHT: 78.5 kg BP: RVIDd: 2.6 cm (< 3.3) IVSd: 1.3 cm (0.6 - 1.1) LVIDd: 4.1 cm (3.9 - 5.3) LVPWd: 1.3 cm (0.6 - 1.1) IVSs: 1.8 cm LVIDs: 1.9 cm LVPWs: 1.6 cm LAESV Index (A-L): 15.88 ml/m Ao Diam: 3.1 cm (2.0 - 3.7) AV Cusp: 1.8 cm (1.5 - 2.6) LA Diam: 2.8 cm (2.7 - 3.8) EPSS: 0.3 cm MV E [place]: 0.67 m/s MV DecT: 211 ms MV A [place]: 0.71 m/s MV E/A Ratio: 0.95 RAP: 5.00 mmHg RVSP: 24.39 mmHg MV EF SLOPE: 72.89 mm/s (70 - 150) MV EXCURSION: 1.67 cm (> 18.000) FINDINGS -------- Sinus rhythm. This was a technically good study. The left ventricular size is normal. There is mild concentric left ventricular hypertrophy. Overa ll left ventricular systolic function is normal with, an EF between 55 - 60 %. The diastolic fillin g pattern is normal for the age of the patient. The right ventricle is normal in size. The left atrial size is normal. Left atrium is normal size by volume. The right atrial size is normal. Interatrial and interventricular septum intact. Aortic valve is trileaflet and is mildly thickened. The mitral valve is normal. The mitral valve leaflets are mildly thickened. There is trace mitral regurgitation. Trace tricuspid regurgitation present. Right ventricular systolic pressure is normal at < 35 mmHg. There is no pulmonic regurgitation present. The aortic root size is normal. Normal inferior vena cava with normal inspiratory collapse consistent with estimated right atrial pre ssure of 10 mmHg. All pulmonary veins appear normal. There is no pericardial effusion. CONCLUSIONS -------- 1. Sinus rhythm. 2. This was a technically good study. 3. The left ventricular size is normal. 4. There is mild concentric left ventricular hypertrophy. 5. Overall left ventricular systolic function is normal with, an EF between 55 - 60 %. 6. The diastolic filling pattern is normal for the age of the patient. 7. The right ventricle is normal in size. 8. The left atrial size is normal. 9. Left atrium is normal size by volume. 10. The right atrial size is normal. 11. Interatrial and interventricular septum intact. 12. Aortic valve is trileaflet and is mildly thickened. 13. The mitral valve is normal. 14. The mitral valve leaflets are mildly thickened. 15. There is trace mitral regurgitation. 16. Trace tricuspid regurgitation present. 17. Right ventricular systolic pressure is normal at < 35 mmHg. 18. There is no pulmonic regurgitation present. 19. The aortic root size is normal. 20. Normal inferior vena cava with normal inspiratory collapse consistent with estimated right atrial pressure of 10 mmHg. 21. All pulmonary veins appear normal. 22. There is no pericardial effusion. CABLEMAN: Johanna Carpenter RDCS
== END | disposition home or self-care (01) ==
LOC: RADECHMAIN 13:13
PROVIDERS: ATTEND Internal Medicine Rheumatology
DX: I51.7 Cardiomegaly (principal); I05.9 Rheumatic mitral valve disease, unspecified
CPT/HCPCS: 93306

== ENCOUNTER → 2019-07-02 | Outpatient (CLI) | payer BC ==
--- NOTE | 2019-07-02 15:30 | XR ---
EXAMINATION TYPE: XR Hip Complete LT DATE OF EXAM: 07/02/2019 CLINICAL HISTORY: Pain for 2 years since hip replacement. TECHNIQUE: AP and frogleg views of the left hip are obtained. COMPARISON: Intraoperative left hip x-ray November 27, 2016. FINDINGS: There is no acute fracture/dislocation evident in the left hip. Metallic hardware from tot al left hip arthroplasty remains stable and satisfactory in position. No new suspicious surrounding l ucency is seen. The overlying soft tissue appears unremarkable. IMPRESSION: As above
== END | disposition home or self-care (01) ==
LOC: RADXRMAIN 15:04
PROVIDERS: ATTEND Internal Medicine
DX: M25.552 Pain in left hip (principal); Z96.652 Presence of left artificial knee joint
CPT/HCPCS: 73502

== ENCOUNTER → 2020-08-16 | Outpatient (CLI) | payer MEDICARE, BC ==
--- NOTE | 2020-08-16 17:00 | ECHOF ---
Referral Reason:M34.9 Systemic sclerosis, unspecified MEASUREMENTS -------- HEIGHT: 162.6 cm WEIGHT: 76.2 kg BP: RVIDd: 2.1 cm (< 3.3) IVSd: 1.3 cm (0.6 - 1.1) LVIDd: 3.9 cm (3.9 - 5.3) LVPWd: 1.4 cm (0.6 - 1.1) IVSs: 1.9 cm LVIDs: 2.7 cm LVPWs: 1.8 cm LAESV Index (A-L): 16.53 ml/m Ao Diam: 2.9 cm (2.0 - 3.7) AV Cusp: 2.0 cm (1.5 - 2.6) LA Diam: 3.1 cm (2.7 - 3.8) MV EXCURSION: 13.536 mm (> 18.000) MV EF SLOPE: 61 mm/s (70 - 150) EPSS: 0.7 cm MV E Clinton: 0.67 m/s MV DecT: 226 ms MV A [place]: 0.59 m/s MV E/A Ratio: 1.15 RAP: 5.00 mmHg RVSP: 16.07 mmHg FINDINGS -------- This was a technically good study. The left ventricular size is normal. There is mild concentric left ventricular hypertrophy. Overa ll left ventricular systolic function is normal with, an EF between 55 - 60 %. The diastolic fillin g pattern is normal for the age of the patient 14.05. The right ventricle is normal in size. The left atrial size is normal. The right atrial size is normal. Interatrial and interventricular septum intact. The aortic valve is trileaflet and appears structurally normal. The mitral valve is normal. There is trace mitral regurgitation. The tricuspid valve appears structurally normal. Trace tricuspid regurgitation present. Right octaviano tricular systolic pressure is normal at < 35 mmHg. There is no pulmonic regurgitation present. The aortic root size is normal. Normal inferior vena cava with normal inspiratory collapse consistent with estimated right atrial pre ssure of 5 mmHg. There is no pericardial effusion. CONCLUSIONS -------- 1. The left ventricular size is normal. 2. There is mild concentric left ventricular hypertrophy. 3. Overall left ventricular systolic function is normal with, an EF between 55 - 60 %. 4. The diastolic filling pattern is normal for the age of the patient 14.05 5. There is trace mitral regurgitation. 6. Trace tricuspid regurgitation present. 7. There is no pericardial effusion. DIRECTOR COMPLIANCE: Johanna Carpenter RDCS
== END | disposition home or self-care (01) ==
LOC: RADECHMAIN 13:57
PROVIDERS: ATTEND Internal Medicine
DX: I51.7 Cardiomegaly (principal); M34.9 Systemic sclerosis, unspecified
CPT/HCPCS: 93306

== ENCOUNTER → 2020-08-31 | Outpatient (CLI) | payer MEDICARE, BC | END | disposition home or self-care (01) | LOC: CPPFTMAIN 11:52 | PROVIDERS: ATTEND Internal Medicine | DX: M34.9 Systemic sclerosis, unspecified (principal) | CPT/HCPCS: 94060; 94726; 94729 ==

== ENCOUNTER → 2021-09-01 | Outpatient (CLI) | payer MEDICARE, BC ==
[2021-09-01 10:38] VITALS: BP 125/74; PULSE 83; RESP 16; TEMP 98.5
--- NOTE | 2021-09-01 10:56 | P.GSHP ---
History of Present Illness H&P Date: 09/01/21 Chief Complaint: abnormal left breast ultrasound Precious is a 66 year old white female seen in consultation for Dr. Swenson regarding a monographic abnormality in her left breast. She had a bilateral mammogram in May 2021, this revealed an area of concern in the left breast for which diagnostic mammogram and ultrasound were performed. These were done in June 2021. A lesion on ultrasound was noted in the left breast on ultrasound-guided core biopsy was recommended. The patient does not feel anything of concern in either breast. The patient is not complaining of any nipple discharge or skin changes. She is not complaining of any pain in her breasts. She is not complaining of any lumps masses or nodules of concern in either breast. She has not had any recent trauma or infection in the breast. Caffeine: 2 cups/day nicotine: 1/2 PPD for 45 years chocolate: occasional BCP: 1 year in late teens Family history: father: prostate cancer brother: prostate cancer mother: uterine cancer, aggressive lymphoma ( from this) Hormonal history: Menarche: 12 , breast fed: yes, age at first : 21 menopause: 50 hormones: none Surgical History: bilateral shoulder/ right bone spur, left shoulder open surgery torn rotater cuff total left hip replacement tubes and ovaries removed due to a cyst (2017) Medical History: systemic sclerosis/sclerodema Sojrens syndrome/Raynauds syndrome joint pain/ lower back pain bulging disc fatty liver Social history: Nicotine: One half pack per day for 45 years Alcohol: none drugs: none - Constitutional Constitutional: Denies chills, Denies fever - EENT Comment: glaucoma Eyes: denies blurred vision, denies pain Ears: bilateral: decreased hearing, deny: tinnitus Ears, nose, mouth and throat: Denies headache, Denies sore throat - Breasts Comment: lipoma removed left breast Breasts: bilateral: as per HPI - Cardiovascular Comment: has not seen a pharmacy benefits coordinator since 40 years of age Cardiovascular: Reports chest pain, Denies shortness of breath - Respiratory Respiratory: Denies cough, Denies 7 - Gastrointestinal Comment: GERD - Menstruation Menstruation: Reports as per HPI - Musculoskeletal Comment: Raynauds syndrome, scleroderma, Sojrens syndrome Musculoskeletal: Reports as per HPI - Integumentary Comment: Raynauds syndrome, 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 FATTY LIVER. POS SLEEP APNEA, CPAP. MIGRAINES. VARICOSE VEINS, limited scleroderma, skin cancer right hand 2020 History of Any Multi-Drug Resistant Organisms: None Reported Past Surgical History: Joint Replacement, Orthopedic Surgery Additional Past Surgical History / Comment(s): MONIQUE SHOULDER SURG. MONIQUE OVARIES, TUBES REMOVED.replacement lt hip Past Anesthesia/Blood Transfusion Reactions: No Reported Reaction Past Psychological History: Anxiety Past Alcohol Use History: None Reported Additional Past Alcohol Use History / Comment(s): SMOKED 40 YEARS, 1/2ppd Past Drug Use History: None Reported - Past Family History Father Brother(s) Family Medical History: Cancer Mother Family Medical History: Cancer Additional Family Medical History / Comment(s): lymphoma,uterine cancer Father Family Medical History: Cancer Additional Family Medical History / Comment(s): prostate Sister(s) Family Medical History: Cancer Additional Family Medical History / Comment(s): skin cancer Brother(s) Family Medical History: Cancer Additional Family Medical History / Comment(s): prostate Medications and Allergies Home Medications Medication Instructions Recorded Confirmed Type Cholecalciferol [Vitamin D3 (25 2,000 units PO DAILY 11/20/16 08/29/21 History Mcg = 1000 Iu)] lisinopriL [Zestril] 20 mg PO HS 11/20/16 08/29/21 History Pantoprazole Sodium 40 mg PO DAILY 03/28/18 08/29/21 History Rosuvastatin [Crestor] 40 mg PO DAILY 03/28/18 08/29/21 History Vitamin B Complex 1 each PO DAILY 03/28/18 08/29/21 History NIFEdipine [Procardia XL] 30 mg PO 1400 10/31/18 08/29/21 History Cevimeline [Evoxac] 30 mg PO TID 08/29/21 08/29/21 History cycloSPORINE [Restasis] 1 applicator BOTH EYES BID 08/29/21 08/29/21 History Allergies Allergy/AdvReac Type Severity Reaction Status Date / Time adhesive tape Allergy BLISTERS Verified 08/29/21 15:36 Surgical - Exam BMI: 28.5 - General no distress - Eyes normal ocular movement - ENT no hearing loss, no congestion - Neck no masses, trachea midline - Respiratory normal expansion - Cardiovascular Rhythm: regular Heart Sounds: normal: S1, S2 - Abdomen Abdomen: soft, non tender, no guarding, no rigid, no rebound - Integumentary normal turgor - Neurologic no disoriented, no combative - Musculoskeletal normal gait, normal posture - Psychiatric oriented to time, oriented to person, oriented to place, speech is normal, memory intact Breast Exam: BRA: 42C Inspection: Bilateral grade 3 ptosis Right breast smaller than left breast Palpation: Right breast: Multiple positional exam fibrocystic changes no dominant masses or nodules of concern Right axilla: No adenopathy of concern Left breast: Multiple positional exam fibrocystic changes, small nodularity at approximately 11:00 most likely in the subcutaneous tissue, no other dominant masses or nodules of concern noted Left axilla: No adenopathy of concern Results Mammogram and ultrasound reviewed in detail with Dr. West Assessment and Plan Assessment: Impression: 1. Abnormal left breast mammogram/ultrasound lesion noted at 7:00 2. Fibrocystic breast changes 3. Palpable abnormality 11:00 left breast most likely in the subcutaneous tissue 4. Raynauds/Sojrens syndrome 5. Scleroderma 6. fatty liver 7. pre-diabetic Plan: 1. Ultrasound-guided core biopsy left breast lesion 2. Patient to follow-up after ultrasound-guided core biopsy consider excision of palpable lesion at 11:00 left breast Cc: Dr. Swenson, Dr. Gibbs Risk and benefits of ultrasound guided core biopsy discussed with the patient. Risks include but are not limited to bleeding, infection, reaction to the anesthetic. Additionally the patient understands that if the biopsy were to be discordant and open biopsy could be recommended. She understands and wishes to proceed.
== END | disposition home or self-care (01) ==
LOC: WWCWWP 09:49
PROVIDERS: ATTEND Surgery
DX: Z53.9 Procedure and treatment not carried out, unspecified reason (principal)

== ENCOUNTER 2021-10-14 07:40 | Day surgery (SDC) | payer MEDICARE, BC ==
[2021-10-12 13:39] VITALS: BMI 28.8
[2021-10-14] MEDS ORDERED: LACTATED RINGERS 1,000 ML IV SCH (07:54)
[2021-10-14] MEDS ORDERED: LACTATED RINGERS 1,000 ML IV ONE (08:00)
[2021-10-14 08:02] VITALS: TEMP 97.5
[2021-10-14] MEDS ORDERED: ONDANSETRON 4 MG/2 ML VIAL ONE ×2 (08:27→08:47)
[2021-10-14] MEDS ORDERED: PROPOFOL 10 MG/ML 20 ML VIAL IV ONE (08:27)
--- NOTE | 2021-10-14 08:44 | P.PCN ---
Date of Procedure: 10/14/21 Procedure(s) Performed: Brief history: Patient is a pleasant 66-year-old white female scheduled for an elective upper endoscopy as well as colonoscopy as a part of evaluation of Prior History of GERD and Prior History of Colon Polyps Procedure performed: Esophagogastroduodenoscopy with biopsy Colonoscopy Preoperative diagnosis: Long-standing history of GERD Prior history of colon polyps Anesthesia: MAC Procedure: After informed consent was obtained from the patient was brought into the endoscopy unit and IV sedation was administered by anesthesia under continuous monitoring. Initially upper endoscopy was done. The Olympus GF 160 video endoscope was inserted inserted into the mouth and esophagus intubated without any difficulty and was gradually advanced into the stomach and duodenum and carefully examined. The bulb and second part of the duodenum appeared normal. The scope was then withdrawn into the stomach adequately insufflated with air and upon careful examination the antrum had linear erythema was biopsied. The body, cardia and fundus appeared normal. The scope was then withdrawn into the esophagus. The GE junction was located at 39 cm to the incisors. small hiatal hernia noted. a the GE junction ppeared regular with no erythema erosions or ulcerations. Rest of the esophagus appeared normal. Patient tolerated the procedure well. At this time the patient continued to remain sedation. Initial digital rectal examination was normal. Olympus CF 160 video colonoscope was then inserted into the rectum and gradually advanced to the cecum without any difficulty. Careful examination was performed as the scope was gradually being withdrawn. The prep was excellent. The cecum, ascending colon, transverse colon, descending colon, sigmoid colon and rectum appeared normal. Retroflexion was performed in the rectum and no lesions were noted. Patient tolerated the procedure well. Impression: 1. Upper endoscopy revealed small hiatal hernia and antral gastritis 2. Colonoscopy was within normal limits with no evidence of colorectal neoplasia Recommendations: Findings of this examination were discussed with the patient as well as as her family. She was advised to follow with the biopsy results. She can have a repeat screening colonoscopy in 10 years.
[2021-10-14 09:00] VITALS: BP 124/53; PULSE 78; RESP 20
== END 2021-10-14 09:29 | disposition home or self-care (01) ==
LOC: ORWHC2ENDO 07:40
PROVIDERS: ATTEND Internal Medicine Gastroenterology
DX: K21.9 Gastro-esophageal reflux disease without esophagitis (principal); Z86.010 Personal history of colon polyps
CPT/HCPCS: 43239; 88305; G0121; J2405; J2704

== ENCOUNTER → 2022-01-31 | Outpatient (CLI) | payer MEDICARE, BC ==
--- NOTE | 2022-01-31 15:32 | CA ---
Transthoracic Echo Report Name: Precious Parekh Age: 66 Gender: F : 1955 Exam Date: 01/31/2022 11:21 Exam Location: [place] [facility] Ht (in): 63 Wt (lb): 165 Ordering Physician: Louis Ding MD Attending/Referring Phys: [employer] Officer Johanna An RDCS Procedure CPT: Indications: M34.9 Systemic Sclerosis Cardiac Hx: No cardiac hx. Technical Quality: Good Contrast 1: Total Dose (mL): Contrast 2: Total Dose (mL): MEASUREMENTS (Male / Female) Normal Values 2D ECHO LV Diastolic Diameter PLAX 3.9 cm 4.2 - 5.9 / 3.9 - 5.3 cm LV Systolic Diameter PLAX 1.9 cm IVS Diastolic Thickness 1.5 cm 0.6 - 1.0 / 0.6 - 0.9 cm LVPW Diastolic Thickness 1.7 cm 0.6 - 1.0 / 0.6 - 0.9 cm LV Relative Wall Thickness 0.8 RV Internal Dim ED PLAX 2.4 cm LA Volume 32.8 cm??? 18 - 58 / 22 - 52 cm??? M-MODE Aortic Root Diameter MM 3.3 cm LA Systolic Diameter MM 3.1 cm LA Ao Ratio MM 0.9 MV E Point Septal Separation 0.8 cm AV Cusp Separation MM 1.8 cm DOPPLER AV Peak Velocity 95.0 cm/s AV Peak Gradient 3.6 mmHg MV Area PHT 3.3 cm??? MR Peak Velocity 106.8 cm/s MR Peak Gradient 4.6 mmHg Mitral E Point Velocity 81.5 cm/s Mitral A Point Velocity 58.9 cm/s Mitral E to A Ratio 1.4 MV Deceleration Time 230.9 ms MV E' Velocity 4.4 cm/s Mitral E to MV E' Ratio 18.5 TR Peak Velocity 161.3 cm/s TR Peak Gradient 10.4 mmHg Right Ventricular Systolic Press 14.4 mmHg FINDINGS Left Ventricle Moderately increased septal wall thickness. Severely increased posterior wall thickness. Left ventricular ejection fraction is estimated at 55-60_grade 1 diastolic dysfunction. %. Left ventricular cavity size normal. Right Ventricle The right ventricle is normal in size and function. Right Atrium The right atrium is normal in size. Left Atrium The left atrium is normal in size. Mitral Valve Structurally normal mitral valve without significant stenosis or prolapse. There is a trace of mitral regurgitation. Aortic Valve Structurally normal aortic valve without significant sclerosis or stenosis. There is no aortic regurgitation. Tricuspid Valve Structurally normal tricuspid valve without significant stenosis. Pulmonary artery systolic pressure is normal. Trace tricuspid regurgitation. Pulmonic Valve Structurally normal pulmonic valve without significant stenosis. There is no pulmonic regurgitation. Pericardium Normal pericardium without effusion. Aorta Normal aortic root dimension. CONCLUSIONS Left ventricular hypertrophy with preserved LV systolic function Previewed by: Dr. Cornelio Zamora MD (Electronically Signed) Final Date: 31 January 2022 15:31
== END | disposition home or self-care (01) ==
LOC: CPPFTMAIN 10:02
PROVIDERS: ATTEND Internal Medicine
DX: M34.9 Systemic sclerosis, unspecified (principal)
CPT/HCPCS: 93306; 94060; 94726; 94729

== ENCOUNTER → 2022-08-01 | Outpatient (CLI) | payer MEDICARE, BC | LOC: CPPFTMAIN 10:21 | PROVIDERS: ATTEND Internal Medicine | DX: M34.9 Systemic sclerosis, unspecified (principal) | CPT/HCPCS: 94060; 94726; 94729 ==

== ENCOUNTER → 2022-08-02 | Outpatient (CLI) | payer MEDICARE, BC ==
--- NOTE | 2022-08-02 14:53 | MM ---
Reason for Exam: Additional evaluation requested from prior study. Last mammogram was performed 1 year(s) and 1 month(s) ago. Patient History: Menarche at age 11. First Full-Term at age 21. Left ovary removed at age 61. Right ovary removed at age 61. Postmenopausal. Patient has history of breast feeding. 09/07/2021, Benign Cyst Aspiration on the left side. Risk Values: Jody 5 year model risk: 1.6%. NCI Lifetime model risk: 5.9%. Prior Study Comparison: 05/20/2020 Bilateral MG 3D screening mammo w/cad, [facility]. 06/03/2021 Bilateral MG screening mammo w CAD - 2, [facility]. 06/14/2021 Left MG diagnostic mammo LT w CAD - 2, [facility]. Tissue Density: There are scattered fibroglandular densities. Findings: Analyzed By CAD. No significant interval change is evident. Core markers within the left breast. No suspicious spiculated or lobular masses, cluster microcalcifications, architectural distortion, or other secondary signs of malignancy are radiographically apparent. Overall Assessment: Benign, BI-RAD 2 Management: Screening Mammogram of both breasts in 1 year. A clinical breast exam by your physician is recommended on an annual basis and results should be correlated with mammographic findings. This exam should not preclude additional follow-up of suspicious palpable abnormalities. Results were given to the patient verbally at the time of exam. Electronically signed and approved by: Peng West D.O. Radiologis
== END | disposition home or self-care (01) ==
LOC: RADMAMWWP 12:59
PROVIDERS: ATTEND Internal Medicine
DX: R92.8 Other abnormal and inconclusive findings on diagnostic imaging of breast (principal); Z78.0 Asymptomatic menopausal state; Z90.721 Acquired absence of ovaries, unilateral
CPT/HCPCS: 77066; G0279; 77062

== ENCOUNTER → 2022-08-17 | Outpatient (CLI) | payer MEDICARE, BC ==
--- NOTE | 2022-08-21 12:07 | MR ---
EXAMINATION TYPE: MR abdomen wo/w con DATE OF EXAM: 08/17/2022 12:57 PM INDICATION: Patient age:Female; 66 years old; Reason for study: E27.8 SPECIFIED DISORDERS OF ADRENAL GLAND; COMPARISON: none TECHNIQUE: Multiplanar multi-sequence imaging was performed without contrast. Post contrast imaging was performed. Post IV contrast subtraction images were also submitted for review. IV Contrast: 6.5 mL of Gadavist FINDINGS: LOWER CHEST: Pars mildly enlarged for size. ABDOMEN Liver: Scattered high T2 hepatic cysts. Including segment 6 measuring 6 mm and 9 mm and 10 mm in segment 5 m edially. * Additional scattered subcentimeter flash filling lesions on arterial phase which equilibrates on d elayed imaging likely representing shunting phenomenon. * Scattered high T2 signal lesions including segment 3 measuring 7 mm, segment 6 measuring 9 mm and segment 7 measuring 11 mm. These all demonstrating progressive enhancement which persists on delayed imaging. Gallbladder and Bile ducts: Layering debris. Pancreas: Unremarkable. Spleen: Multiple inconspicuous T1/T2 signal lesions are seen within this spleen that demonstrate prog ressive enhancement compared to background parenchyma example includes a 12 mm lesion series [id number] ross ge [id number]. On delayed imaging is become somewhat isointense to background parenchyma. And then become mo re conspicuous with increased T1 signal.. Adrenal glands: Left adrenal nodule measuring 17 mm it does demonstrate signal dropout on out of phas e imaging. Kidneys: Unremarkable. Stomach and Bowel: Small hiatal hernia present. No evidence of bowel obstruction. Peritoneum: No evidence of pneumoperitoneum, free fluid, or adenopathy. Vasculature: Unremarkable. No aortic aneurysm. Musculoskeletal: The osseous structures appear intact. Abdominal wall: Unremarkable. IMPRESSION: 1. Left adrenal nodule most consistent with lipid rich adrenal adenoma with expected signal dropout on chemical shift of phase imaging. 2. Scattered enhancing hepatic lesions which persists on delayed imaging suspicious for a benign tristan ology such as a hemangioma. Additional scattered shunt phenomenon suspected within the liver. 3. Multiple lesions within the spleen which demonstrate delayed progressive enhancement likely repre senting hemangiomas. 4. Small hiatal hernia.
== END | disposition home or self-care (01) ==
LOC: RADMRIMAIN 11:21
PROVIDERS: ATTEND Internal Medicine
DX: K76.9 Liver disease, unspecified (principal); K44.9 Diaphragmatic hernia without obstruction or gangrene; D73.9 Disease of spleen, unspecified; E27.8 Other specified disorders of adrenal gland
CPT/HCPCS: 74183; A9585

== ENCOUNTER → 2022-08-22 | Outpatient (CLI) | payer MEDICARE, BC ==
[~2022-08-22] MED LIST changes: -LACTATED RINGERS 1,000 ML IV SCH; +REGADENOSON 0.4 MG/5 ML SYRINGE IV PRN
--- NOTE | 2022-08-22 08:17 | CTL ---
EXAMINATION TYPE: CT Low Dose Lung DATE OF EXAM ORDERED: 08/22/2022 HISTORY: Z87.891 HX OF TOBACCO DEPEN, R07.89 CHEST PAIN. Lung cancer screening CT DLP: [address] CTDI: 3.10 mGy Automated exposure control for dose reduction was used. SCREENING VISIT: First COMPARISON: None TECHNIQUE: Low dose computed tomography scan was performed through the chest at 1 mm thick sections a nd reconstructed images in multiple planes at 1 mm and [address] DIAGNOSTIC QUALITY: Satisfactory FINDINGS: LUNG NODULES: 7 mm nodule within the medial aspect of the right upper lobe (series 4, 65). There is c entral coarse calcification identified. Favored to represent a hamartoma. LUNGS: COPD: Severity: None Fibrosis: Severity: None Lymph nodes: None Other findings: None RIGHT PLEURAL SPACE: Effusion: None Calcification: None Thickening: None Pneumothorax: None LEFT PLEURAL SPACE: Effusion: None Calcification: None Thickening: None Pneumothorax: None HEART: Heart Size: Normal Coronary Calcification: None Pericardial Effusion: None OTHER FINDINGS: Upper abdomen: Moderate size hiatal hernia. Bony thorax: None Supraclavicular region: None Other: None IMPRESSION: 1. 7 mm right upper lobe pulmonary nodule with central coarse calcification favored to represent a b enign hamartoma. 2. Moderate size hiatal hernia. CT LUNG RAD AND CT CHEST RECOMMENDATION: Lung-Rad 1 Negative: Continue annual screening with LDCT in 12 months. S Modifier (other clinically significant findings): None
--- NOTE | 2022-08-22 11:15 | CA ---
Lexiscan Nuclear Stress Test Report Name: Precious Parekh Exam Date: 08/22/2022 09:54 Exam Location: [place] Stress Ht (in): 64 Wt (lb): 162 BSA: 1.79 Ordering Phys: Adeel Wise MD Referring Phys: ADEEL WISE,, Technologist: Mukesh Batista Age: 66 Gender: F : 1955 Procedure CPT: Indications: R07.89 Z87.891 ICD-10 Codes: Patient History: CHEST PAIN, HTN, DIABETES, ELEVATED CHOLESTEROL LEVELS, CURRENT SMOKER 0.5 PPD X 40 YEARS Medications: Meds past 24 hrs: Pretest Chest Pain: STRESS TEST Lexiscan Protocol Exercise Duration (min:sec): 02:[address] Depressions (mm): Angina Score: Davalos Score: Resting HR (bpm): 67 Peak HR (bpm): 85 Resting BP (mmHg): 114 / 78 Peak BP (mmHg): 122 / 70 MPHR: 154 Target HR: 131 % MPHR: 55 METS: 1.0 Total Dose: Peak Dose: Atropine: Double Product: 16103 BP Response: Stress Termination: Stress Symptoms: Stress Summary: ECG ANALYSIS Resting ECG: Stress ECG: CONCLUSIONS Baseline EKG revealed a normal sinus rhythm with minor nonspecific ST abnormality. With Lexiscan administration the heart rate went up from 67-82 bpm and the blood pressure changed from 121/71-109/67. Patient was asymptomatic and EKG did not reveal any new significant findings. Given the resting EKG abnormalities this is considered is an inconclusive stress test by EKG criteria. The nuclear scan results which are more pertinent will be reported with radiologist Dr. Sean Chang MD (Electronically Signed) Final Date: 22 August 2022 11:14
--- NOTE | 2022-08-22 12:17 | NM ---
EXAMINATION TYPE: NM stress lexiscan cardiolite DATE OF EXAM: 08/22/2022 COMPARISON: NONE HISTORY: Z87.891 HX OF TOBACCO DEPEN, R07.89 CHEST PAIN TECHNIQUE: After the intravenous administration of 10.1 mCi Tc 99m Sestamibi - Cardiolite resting SP ECT images acquired 45 minutes post injection. The patient received 0.4mg Lexiscan, 25.1 mCi Tc 99m Sestamibi - Stress images obtained [address] injection FINDINGS: Review of stress and rest SPECT images demonstrates no distinct perfusion abnormality. Gated analysi s shows an estimated left ventricular ejection fraction of 57 %. There is wall motion abnormality vandana ng the septal wall which may be due to artifact. TID is 0.91 is within normal limits. IMPRESSION: No scintigraphic evidence for reversible ischemia.
== END | disposition home or self-care (01) ==
LOC: RADCTMAIN 07:27
PROVIDERS: ATTEND Internal Medicine
DX: Z12.2 Encounter for screening for malignant neoplasm of respiratory organs (principal); K44.9 Diaphragmatic hernia without obstruction or gangrene; J98.4 Other disorders of lung; R91.1 Solitary pulmonary nodule; R07.89 Other chest pain; Z87.891 Personal history of nicotine dependence
CPT/HCPCS: 93017; 71271; 78452; A9500; J2785

== ENCOUNTER → 2022-09-11 | Outpatient (CLI) | payer MEDICARE, BC ==
--- NOTE | 2022-09-11 13:53 | BD ---
EXAMINATION TYPE: Axial Bone Density DATE OF EXAM: 09/11/2022 COMPARISON: FIRST DEXA AT [facility] CLINICAL HISTORY: 67 years year old Female. ICD-10 CODE: Z78.0 asymptomatic postmenopausal state Height: 63IN Weight: 162LB FRAX RISK QUESTIONS: History of Fracture in Adulthood: NO Secondary Osteoporosis: Current Tobacco Use: YES RISK FACTORS HISTORY OF: Surgery to Hip(left): YES LTHA When: 2016 Family History of Osteoporosis: UNSURE Active: YES Postmenopausal woman: YES Poor Health: FAIR Hyperparathyroidism: UNSURE, SEEING MANAGER PERFORMANCE IN OCTOBER MEDICATIONS: Additional Medications: BP MED, CHOLESTEROL MED, REFLUX MED, VITAMIN D, ANXIETY MED Additional History: EXAM MEASUREMENTS: Bone mineral densitometry was performed using the Vedantu System. Bone mineral density as measured about the Lumbar spine is: ----- L1-L4(G/cm2): 1.202 T Score Values are as follows: ----- L1: -0.3 ----- L2: -0.5 ----- L3: 0.0 ----- L4: 1.2 ----- L1-L4: 0.[address] [facility] Bone mineral density about the R hip (g/cm2): 1.038 T Score values are as follows: -----R Neck: -0.3 -----R Total: 0.[address] [facility] FRAX%s: The graph provided illustrates a 6.9% chance for a major osteoporotic fx and a 0.5% chance fo r the hips probability for fx in 10 years time. IMPRESSION: Normal (Values between +1 and -1 indicate normal bone mass). Consider repeating this study in 5 year s or sooner if there is some new clinical indication. NOTE: T-SCORE=SD OF THE YOUNG ADULT MEAN.
== END | disposition home or self-care (01) ==
LOC: RADBDWWP 13:07
PROVIDERS: ATTEND Internal Medicine
DX: Z13.820 Encounter for screening for osteoporosis (principal); Z78.0 Asymptomatic menopausal state
CPT/HCPCS: 77080

== ENCOUNTER → 2023-02-09 | Outpatient (CLI) | payer MEDICARE, BC ==
--- NOTE | 2023-02-09 12:08 | CT ---
EXAMINATION TYPE: CT brain wo con DATE OF EXAM: 02/09/2023 COMPARISON: None INDICATION: Left sided facial droop and right arm shakiness. DLP: 1059.9 mGycm, Automated exposure control for dose reduction was used. CONTRAST: None CT of the brain is performed utilizing 3 mm thick sections through the posterior fossa and 3 mm thick sections through the remaining calvarium. Study is performed within 24 hours of arrival to the hosp [facility]. No abnormal hyperdensity is present to suggest an acute intracranial hemorrhage. No mass lesion is evident. No acute infarcts are evident. Ventricles and sulci are appropriate for the patient age. Paranasal sinuses and mastoid air cells within the [id number] are clear. IMPRESSIONS: 1. No acute intracranial process. Follow-up MRI can be performed as clinically indicated.
== END | disposition home or self-care (01) ==
LOC: RADCTMAIN 11:47
PROVIDERS: ATTEND Internal Medicine
DX: R29.810 Facial weakness (principal)
CPT/HCPCS: 70450

== ENCOUNTER → 2023-02-19 | Outpatient (CLI) | payer MEDICARE, BC ==
--- NOTE | 2023-02-19 13:20 | XR ---
EXAMINATION TYPE: XR knee 4V LT DATE OF EXAM: 02/19/2023 1:09 PM INDICATION: Patient age:Female; 67 years old; Reason for study: M25.562. COMPARISON: None. TECHNIQUE: The Left knee(s) was examined in Frontal, lateral and oblique projections. FINDINGS: No evidence of any acute osseous pathology, soft tissue swelling, or joint effusion is no veronica. Tricompartmental osteophyte formation involving the femoral condyles, tibial plateau and patella. Mi ld joint space narrowing. IMPRESSION: 1. No acute osseous pathology. 2. Mild tricompartmental osteoarthritic changes.
== END | disposition home or self-care (01) ==
LOC: RADXRMAIN 12:27
PROVIDERS: ATTEND Internal Medicine
DX: M17.12 Unilateral primary osteoarthritis, left knee (principal)

== ENCOUNTER → 2023-02-21 | Outpatient (CLI) | payer MEDICARE, BC ==
--- NOTE | 2023-02-21 18:03 | MR ---
EXAMINATION TYPE: MR lumbar spine wo con DATE OF EXAM: 02/21/2023 5:47 PM COMPARISON: CT 08/22/2022 CLINICAL INDICATION: Female, 67 years old with history of M54.50, Low back pain TECHNIQUE: Multi planar, multi sequence imaging was performed utilizing: T1-weighted, T2-weighted, a nd turbo inversion recovery imaging of the lumbar spine. IV Contrast: None. FINDINGS: Alignment: The lumbar vertebral bodies have preserved heights and alignment. Cord: The conus medullaris and the distal spinal cord appear unremarkable with regards to their signa l intensity and morphology. Bones/Discs: Bone signal is within normal limits. No abnormal bony edema on inversion recovery sequen heri. Minimal degeneration changes throughout the spine with small osteophyte formation and disc space narrowing. There is facet joint arthropathy throughout the spine.. Intervertebral disc signal is sangita ntained. Perineural cysts at the level of S2. T12-L1: No evidence of significant spinal canal stenosis or neural foraminal stenosis. L1-L2: No evidence of significant spinal canal stenosis or neural foraminal stenosis. L2-L3: No evidence of significant spinal canal stenosis or neural foraminal stenosis. L3-L4: No evidence of significant spinal canal stenosis or neural foraminal stenosis. L4-L5: No evidence of significant spinal canal stenosis or neural foraminal stenosis. L5-S1: No evidence of significant spinal canal stenosis or neural foraminal stenosis. No significant spinal canal or neural foraminal stenosis in the remainder of the visualized levels. Other findings: High T2 signal renal cyst. 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 No definitive evidence of disc herniation or significant spinal canal or neural foraminal stenosi s. 2. Minimal disc degeneration with associated osteoarthritic changes.
== END | disposition home or self-care (01) ==
LOC: RADMRIMAIN 16:59
PROVIDERS: ATTEND Internal Medicine
DX: M51.36 Other intervertebral disc degeneration, lumbar region (principal); M47.816 Spondylosis without myelopathy or radiculopathy, lumbar region
CPT/HCPCS: 72148

== ENCOUNTER 2023-02-23 11:20 | Emergency (ER) | payer MEDICARE, BC ==
[2023-02-23 11:26] VITALS: BP 126/82; PULSE 85; RESP 18; TEMP 98.3
[2023-02-23] MEDS ORDERED: LIDOCAINE 5% PATCH TOPICAL STA (11:43)
[2023-02-23] MEDS ORDERED: KETOROLAC 15 MG/ML 1 ML VIAL IM STA (11:43)
--- NOTE | 2023-02-23 11:50 | ED ---
Back Pain HPI - General Chief Complaint: Back Pain/Injury Stated Complaint: lt knee pain Time Seen by Provider: 02/23/23 11:28 Source: patient Limitations: no limitations - History of Present Illness Initial Comments: Patient is a 67-year-old female who presents to the emergency department for left knee pain. Patient twisted her left knee about 3 weeks ago while working on the yard. She reports consistent pain on the outside of her left knee for the past 3 weeks significantly worsened with ambulation. States she has tried Tylenol, Motrin, muscle relaxers without relief. She had an x-ray through her primary care provider which was normal. Patient has chronic back pain states she has been walking funny due to her knee pain which is exacerbating her back pain. Pain is in the low back worse with movement. No numbness or tingling. No loss of bowel or bladder function. She got an MRI of her back on Sunday ordered by her primary care provider. States it was normal. - Related Data Home Medications Medication Instructions Recorded Confirmed Cholecalciferol [Vitamin D3 (25 2,000 units PO DAILY 11/20/16 10/12/21 Mcg = 1000 Iu)] lisinopriL [Zestril] 20 mg PO HS 11/20/16 10/12/21 Pantoprazole Sodium 40 mg PO DAILY 03/28/18 10/12/21 Rosuvastatin [Crestor] 40 mg PO HS 03/28/18 10/12/21 Vitamin B Complex 1 each PO DAILY 03/28/18 10/12/21 NIFEdipine [Procardia XL] 30 mg PO 1400 10/31/18 10/12/21 Cevimeline [Evoxac] 30 mg PO TID 08/29/21 10/12/21 cycloSPORINE [Restasis] 1 applicator BOTH EYES BID 08/29/21 10/12/21 ALPRAZolam [Xanax] 0.5 mg PO HS PRN 09/01/21 10/12/21 Previous Rx's Medication Instructions Recorded HYDROcodone/APAP 7.5-325MG [Julian 1 tab PO Q4HR PRN #18 tab 02/23/23 7.5-325] Ibuprofen [Motrin] 600 mg PO Q8HR PRN #30 tab 02/23/23 Lidocaine 5% Patch [Lidoderm 5% 1 patch TOPICAL DAILY PRN #7 patch 02/23/23 Patch] Allergies Allergy/AdvReac Type Severity Reaction Status Date / Time adhesive tape Allergy BLISTERS Verified 02/23/23 11:26 Review of Systems ROS Statement: Those systems with pertinent positive or pertinent negative responses have been documented in the HPI. ROS Other: All systems not noted in ROS Statement are negative. Past Medical History Past Medical History: Cancer, Eye Disorder, GERD/Reflux, Hyperlipidemia, Hypertension, Liver Disease, Osteoarthritis (OA), Sleep Apnea/CPAP/BIPAP Additional Past Medical History / Comment(s): BLOOD SUGAR INCREASING, NO DIAGNOSIS OR TX YET. FATTY LIVER. NO CPAP USE. VARICOSE VEINS. Scleroderma, Raynauds, Sjogrens. Hx skin cancer on right hand 2020. Varicose veins. Hemorrhoids. Glaucoma. History of Any Multi-Drug Resistant Organisms: None Reported Past Surgical History: Joint Replacement, Orthopedic Surgery Additional Past Surgical History / Comment(s): BILATERAL SHOULDER SURGERY, BILATERAL OVARIES AND TUBES REMOVED, LEFT HIP REPLACEMENT.lt eye Past Anesthesia/Blood Transfusion Reactions: No Reported Reaction Past Psychological History: Anxiety, Depression Smoking Status: Current every day smoker Past Alcohol Use History: None Reported Past Drug Use History: None Reported - Past Family History Father Brother(s) Family Medical History: Cancer Mother Family Medical History: Cancer Additional Family Medical History / Comment(s): Lymphoma, uterine cancer. Father Family Medical History: Cancer Additional Family Medical History / Comment(s): Prostate cancer. Sister(s) Family Medical History: Cancer Additional Family Medical History / Comment(s): Skin cancer. Brother(s) Family Medical History: Cancer Additional Family Medical History / Comment(s): Prostate cancer. General Exam Limitations: no limitations General appearance: alert, in no apparent distress Head exam: Present: atraumatic, normocephalic, normal inspection Eye exam: Present: normal appearance, PERRL, EOMI. Absent: scleral icterus, conjunctival injection, periorbital swelling Respiratory exam: Present: normal lung sounds bilaterally. Absent: respiratory distress, wheezes, rales, rhonchi, stridor Cardiovascular Exam: Present: regular rate, normal rhythm, normal heart sounds. Absent: systolic murmur, diastolic murmur, rubs, gallop, clicks Left Knee exam: Present: normal inspection, full ROM, tenderness, swelling (lateral ). Absent: pain/laxity with valgus, pain/laxity with varus Lower Leg exam: Present: normal inspection, full ROM. Absent: tenderness, swelling Neurovascular tendon exam: Present: no vascular compromise Gait: observed and normal Back exam: Present: normal inspection, full ROM. Absent: muscle spasm, paraspinal tenderness Neurological exam: Present: alert Expanded Sensory exam: Upper Extremity Light Touch: Normal, Lower Extremity Light Touch: Normal Motor strength exam: RUE: 5, LUE: 5, RLE: 5, LLE: 5 Psychiatric exam: Present: normal affect, normal mood Skin exam: Present: warm, dry, intact, normal color. Absent: rash Course Vital Signs 02/23/23 11:22 Temperature 98.3 F Pulse Rate 85 Respiratory 18 Rate Blood Pressure 126/82 O2 Sat by Pulse 96 Oximetry Medical Decision Making - Medical Decision Making Was pt. sent in by a medical professional or institution (, [facility], [facility], urgent care, hospital, or senior care...) When possible be specific @ -No Did you speak to anyone other than the patient for history (EMS, parent, family, police, friend...)? What history was obtained from this source @ -No Did you review nursing and triage notes (agree or disagree)? Why? @ -I reviewed and agree with nursing and triage notes Were old charts reviewed (outside hosp., previous admission, EMS record, old EKG, old radiological studies, urgent care reports/EKG's, senior care records)? Report findings @ -No old charts were reviewed Differential Diagnosis Knee sprain, knee fracture, contusion. this list is not meant to be all inclusive EKG interpreted by me (3pts min.). @ -As above X-rays interpreted by me (1pt min.). @ -None done CT interpreted by me (1pt min.). @ -None done U/S interpreted by me (1pt. min.). @ -None done What testing was considered but not performed or refused? (CT, X-rays, U/S, labs)? Why? @ -Considered x-ray imaging however patient already got an x-ray of the left knee which was normal. What meds were considered but not given or refused? Why? @ -None Did you discuss the management of the patient with other professionals (professionals i.e. Dr., PA, [employer], lab, RT, psych nurse, social welfare administrator, project portfolio analyst, teacher, senior major gifts officer, case finisher)? Give summary @ -No Was smoking cessation discussed for >3mins.? @ -No Was critical care preformed (if so, how long)? @ -No Were there social determinants of health that impacted care today? How? (Homelessness, low income, unemployed, alcoholism, drug addiction, transportation, low edu. Level, literacy, decrease access to med. care, [facility], rehab)? @ -No Was there de-escalation of care discussed even if they declined (Discuss DNR or withdrawal of care, Hospice)? DNR status @ -No What co-morbidities impacted this encounter? (DM, HTN, Smoking, COPD, CAD, Cancer, CVA, ARF, Chemo, Hep., AIDS, mental health diagnosis, sleep apnea, morbid obesity)? @ -None Was patient admitted / discharged? Hospital course, mention meds given and route, prescriptions, significant lab abnormalities, going to OR and other pertinent info. @ -Patient presenting with knee pain and back pain. No neurological deficit. Patient does have swelling of the left knee with tenderness no evidence of effusion. She was placed in knee immobilizer for possible ligamentous injury and given crutches. She will likely need MRI she is referred to clinical applications specialist for further evaluation and management. She is prescribed a short course of Julian for severe pain. Undiagnosed new problem with uncertain prognosis? @ -No Drug Therapy requiring intensive monitoring for toxicity (Heparin, Nitro, Insuli n, Cardizem)? @ -No Were any procedures done? @ -No Diagnosis/symptom? @ -Left knee sprain, back pain Acute, or Chronic, or Acute on Chronic? @ -Acute Uncomplicated (without systemic symptoms) or Complicated (systemic symptoms)? @ -Uncomplicated Side effects of treatment? @ -No Exacerbation, Progression, or Severe Exacerbation? @ -No Poses a threat to life or bodily function? How? (Chest pain, [place], [place], pneumonia, PE, COPD, DKA, ARF, appy, cholecystitis, CVA, Diverticulitis, Homicidal, Suicidal, threat to staff... and all critical care pts) @ -No Dr. Santos is my attending Disposition Clinical Impression: Mechanical back pain, Left knee sprain Disposition: HOME SELF-CARE Condition: Good Instructions (If sedation given, give patient instructions): Knee Sprain (ED), Acute Low Back Pain (ED), Knee Immobilizer (ED) Additional Instructions: Take medication as directed. Save Julian for severe pain. Keep the immobilizer on and use crutches. Do not bear weight until orthopedic clearance. Follow-up with clinical applications specialist in 1-2 days. Turns the emergency department experience new, concerning, or worsening symptoms. Prescriptions: Lidocaine 5% Patch [Lidoderm 5% Patch] 1 patch TOPICAL DAILY PRN #7 patch PRN Reason: Pain Ibuprofen [Motrin] 600 mg PO Q8HR PRN #30 tab PRN Reason: Pain HYDROcodone/APAP 7.5-325MG [Julian 7.5-325] 1 tab PO Q4HR PRN #18 tab PRN Reason: Pain Is patient prescribed a controlled substance at d/c from ED?: Yes If prescribed controlled substance>3 days was MAPS reviewed?: Prescribed <3 Days Referrals: Adeel Ramirez MD [Primary Care Provider] - 1-2 days Feliciano Bhakta DO [Doctor of Osteopathic Medicine] - 1-2 days
== END 2023-02-23 12:15 | disposition home or self-care (01) ==
LOC: EC 11:20
DX: S83.92XA Sprain of unspecified site of left knee, initial encounter (principal); M54.9 Dorsalgia, unspecified; K21.9 Gastro-esophageal reflux disease without esophagitis; E78.5 Hyperlipidemia, unspecified; I10 Essential (primary) hypertension; M19.90 Unspecified osteoarthritis, unspecified site; F41.9 Anxiety disorder, unspecified; F32.A Depression, unspecified; F17.200 Nicotine dependence, unspecified, uncomplicated; Z88.8 Allergy status to other drugs, medicaments and biological substances; Z79.899 Other long term (current) drug therapy; X50.9XXA Other and unspecified overexertion or strenuous movements or postures, initial encounter
CPT/HCPCS: 99283; 96372; J1885

== ENCOUNTER → 2023-03-08 | Outpatient (CLI) | payer MEDICARE, BC ==
--- NOTE | 2023-03-09 08:36 | MR ---
EXAMINATION TYPE: MR knee LT wo con DATE OF EXAM: 03/08/2023 COMPARISON: None HISTORY: Left knee pain. TECHNIQUE: Multiplanar, multisequence imaging of the left knee is performed without IV contrast. FINDINGS: MEDIAL MENISCUS: Myxoid degeneration posterior medial meniscus extends to the periphery of the menisc us. There is a 7 mm fluid collection adjacent to the medial meniscus which could reflect a meniscal c yst. The microtear is difficult to exclude. Anterior horn is intact. LATERAL MENISCUS: Anterior and posterior horns are intact without tear. CRUCIATE LIGAMENTS: Increased signal within the tibial insertion of the ACL may reflect strain or low -grade partial tear. No evidence for full-thickness tear. PCL is intact. COLLATERAL LIGAMENTS: The medial collateral ligament and lateral collateral ligament complex are inta ct and unremarkable. EXTENSOR MECHANISM: Visualized quadriceps and patellar tendons are intact. EFFUSION: Mild joint effusion noted. POPLITEAL CYST: No popliteal/ruffin cyst. TRICOMPARTMENT SPACES: Mild narrowing medial tibiofemoral joint space. CARTILAGE: Intact BONE MARROW SIGNAL: No focal abnormal marrow signal is appreciated. OTHER: No additional significant abnormality is appreciated. IMPRESSION: 1.Myxoid degeneration posterior medial meniscus extends to the periphery of the meniscus. There is a 7 mm fluid collection adjacent to the medial meniscus which could reflect a meniscal cyst. A microtea r is difficult to exclude. 2.Increased signal within the tibial insertion of the ACL may reflect strain or low-grade partial tea r. No evidence for full-thickness tear.
== END | disposition home or self-care (01) ==
LOC: RADMRIMAIN 15:52
PROVIDERS: ATTEND Orthopaedic Surgery
DX: M23.304 Other meniscus derangements, unspecified medial meniscus, left knee (principal); M23.004 Cystic meniscus, unspecified medial meniscus, left knee

== ENCOUNTER → 2023-03-19 | Outpatient (CLI) | payer MEDICARE, BC ==
[2023-03-19 15:48] LABS: Potassium 4.9 mmol/L (3.5-5.5)
[2023-03-19 15:56] LABS: Basophils # (A) 0.08 X 10*3/uL (0.00-0.10); Basophils % (A) 1.2 %; Eosinophils # (A) 0.21 X 10*3/uL (0.04-0.35); Eosinophils % (A) 3.2 %; HCT 44.9 % (37.2-46.3); HGB 14.9 d/dL (12.0-15.0); Lymphocytes # (A) 1.75 X 10*3/uL (0.90-5.00); Lymphocytes % (A) 26.6 %; MCH 29.9 pg (27.0-32.0); MCHC 33.2 d/dL (32.0-37.0); MCV 90.2 FL (80.0-97.0); Mean Platelet Volume 12.7 FL (9.5-12.2); Monocytes # (A) 0.43 X 10*3/uL (0.20-1.00); Monocytes % (A) 6.5 %; NRBC Per 100 WBC 0 X 10*3/uL (0.00-0.01); Neutrophils # (A) 4.09 X 10*3/uL (1.80-7.70); Neutrophils % (A) 62.3 %; Platelet Count 295 X 10*3/uL (140-440); RBC 4.98 X 10*6/uL (4.10-5.20); RDW 14.1 % (11.5-14.5); WBC 6.57 X 10*3/uL (4.50-10.00)
== END | disposition home or self-care (01) ==
LOC: LABPAT 11:00
PROVIDERS: ATTEND Orthopaedic Surgery
DX: Z01.812 Encounter for preprocedural laboratory examination (principal); M23.92 Unspecified internal derangement of left knee; I45.9 Conduction disorder, unspecified; R94.31 Abnormal electrocardiogram [ECG] [EKG]
CPT/HCPCS: 80051; 85025; 93005